=== PATIENT | female | born 1985 | race Caucasian/White ===

== ENCOUNTER 2017-06-21 08:57 | Inpatient (IN) | payer OTHER ==
[~2017-06-21] VITALS: Ht 167.6 cm; Wt 50.3 kg
[2017-06-21 00:30] VITALS: BP 119/80
[2017-06-21] MEDS ORDERED: CLON1TAB4 PO (21:55)
[2017-06-21] MEDS ORDERED: BUPR1FIL SL (21:55)
[2017-06-21] MEDS ORDERED: CARB200T PO (21:55)
[2017-06-21] MEDS ORDERED: SERT100T PO (21:55)
[2017-06-21 22:00] VITALS: BP 119/80
--- NOTE | 2017-06-21 22:00 | NUR ---
Intake Assessment Assessment done at intake office. Patient is alert & oriented to name, place & situation. Pt is not sure of the date. Pt is ambulatory with a steady gait. Speech is clear and audible. Pt is cooperative during interview. Pt appears moderately anxious and noted with mild agitation. Vitals noted B/P 119/80, TX 73, RR 16, Temp 97.8, O2Sat 98%. Pt is here for Opiate and Benzo dependence. No seizure history noted. Pt reported allergies to Penicillins. Pt brought home medications. Explained to patient policy regarding destruction of any controlled substance/prescription brought to facility and handling of all medications. Pt verbalized understanding.
[2017-06-21] MEDS ORDERED: DICYCLOMINE HCL 20 MG TABLET PO PRN (22:15)
[2017-06-21] MEDS ORDERED: ACETAMINOPHEN 325 MG TABLET PO PRN (22:15)
[2017-06-21] MEDS ORDERED: CLONIDINE HCL 0.1 MG TABLET PO PRN (22:15)
[2017-06-21] MEDS ORDERED: LORAZEPAM 1 MG TABLET PO PRN (22:15)
[2017-06-21] MEDS ORDERED: LORAZEPAM 2 MG/1 ML VIAL IM PRN (22:15)
[2017-06-21] MEDS ORDERED: LOPERAMIDE HCL 2 MG CAPSULE PO PRN ×2 (22:15)
[2017-06-21] MEDS ORDERED: MIRALAX 17 GM POWD.PACK PO PRN (22:15)
[2017-06-21] MEDS ORDERED: ONDANSETRON 4 MG/2 ML VIAL IM PRN (22:15)
[2017-06-21 22:36] LABS: *URINE HCG, QUAL NEGATIVE (NEGATIVE)
[2017-06-21 22:59] LABS: *AMPHETAMINE, URINE NEGATIVE (NEGATIVE); *BARBITURATE, URINE NEGATIVE (NEGATIVE); *CANNABINOID, URINE NEGATIVE (NEGATIVE); *COCCAINE, URINE NEGATIVE (NEGATIVE); *OPIATE, URINE NEGATIVE (NEGATIVE); *PHENCYCLIDINE SCREEN,URINE NEGATIVE (NEGATIVE)
[2017-06-21] MEDS ORDERED: LORAZEPAM 1 MG TABLET PO ONE (23:00)
--- NOTE | 2017-06-21 23:00 | NUR ---
ADMISSION NOTE: Patient is a 31 y.o female admitted at [facility] at approximately 2221 pm of 06/21/17 for medically supervised withdrawal from Xanax & Klonopin. Body search done and skin check done, no contraband found. Skin noted to be intact. Pt is 5'6" tall and weighs 111 lbs in a standing scale. Pt is cooperative during assessment. Patient is oriented to floor unit and room. Patient follows a regular diet at home with allergies to Penicillin. Pt wishes to be full Code. Patient is alert & oriented to name, place and situation. Patient does not remember the date. Patient is ambulatory with a steady gait. Speech is clear and audible. Patient appears moderately anxious with mild agitation noted. Patient is cooperative and answers questions appropriately during interview. No shortness of breath noted. Respiration even & unlabored. Abdomen soft & non-distended. Bowel sounds active in all four quadrants. No nausea/vomiting noted. Patient denies pain or discomfort. No headache noted. Bilateral hand tremors noted. Patient denies any hallucinations. CIWA on admission is 9. 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 Pt denies any suicide attempts in the past. Pt currently denies SI/HI. Pt was able to provide urine sample for drug screen upon admission and is voiding clear yellow urine with no problems. Substance use: 1. Klonopin- Pt started taking prescribed Klonopin 1 year and a half ago. Patient reported taking 5-6 mg daily for the past 2 months. Pt last took was 6mg of Klonopin today 06/21/17. 2. Xanax- Pt started taking prescribed Klonopin last month on 05/28/17. Pt reports taking 4-6 bars daily. Pt last took was 10mg on the day of admission 06/21/17 Suboxone- Pt started taking prescribed Suboxone for Opiate maintenance 3 years ago. Pt reports taking 6mg daily for the past 1 year and a half. Pt last took was 5mg on the day of admission 06/21/17. Treatment History: Pt could not recall the name of the treatment facilities she has been to. She remember that she has been to a treatment facility in [place]. Patient denies being hospitalized in the last 30 days. Pt has never been sober from benzodiazepines. Pt decided to come to treatment today because "I want to get off Benzodiazepines". Patient reports symptoms when he does not use as tremors, anxiety, agitation, & sweating. Patient occasionally smokes cigarrettes but uses a vaporizer. Patient refused flu & pneumonia vaccines, educated patient risk & benefits but still refused. Urine drug screen came back positive for Benzodiazepines. Fall & Seizure precautions are in place. All needs attended & met. Safety precautions are in place. Bed locked in lowest position. Both side rails up. Call light within pt's reach. Dr. Gonzales seen pt at intake office. Admission orders received. Pt educated regarding use of the call light and all questions answered. Fall precautions ordered. Bed is down with call light in reach.
[2017-06-21] MEDS ORDERED: [UNRECOGNIZED DRUG - OTHER] (23:05)
[2017-06-21] MEDS ORDERED: Omega 3 (23:05)
[2017-06-21] MEDS ORDERED: OMEG1CAP40 PO (23:05)
[2017-06-21] MEDS ORDERED: Milk Thistle (23:05)
[2017-06-21 23:46] LABS: BASOPHILS % (AUTO) 0.5 % (0.0-2.0); EOSINOPHILS # (AUTO) 0.1 K/uL (0.0-0.7); EOSINOPHILS % (AUTO) 1.6 % (0.0-7.0); HEMATOCRIT 38.2 % (37-47); HEMOGLOBIN 12.8 G/DL (12.0-16.0); LYMPHOCYTES # (AUTO) 4.4 K/UL (0.8-4.8); MEAN CORPUSCULAR HEMOGLOBIN 29.5 UUG (27.0-31.0); MEAN CORPUSCULAR HGB CONC 34 g/dL (32.0-37.0); MEAN CORPUSCULAR VOLUME 88.1 FL (81.0-99.0); MONOCYTES # (AUTO) 0.7 K/UL (0.1-1.30); NEUTROPHILS # (AUTO) 4.1 K/UL (1.8-8.9); NEUTROPHILS % (AUTO) 43.9 % (38.5-71.5); PLATELET COUNT (AUTO) 239 K/UL (150-450); RED BLOOD CELL COUNT(AUTO) 4.33 MIL/UL (4.2-5.4); WHITE BLOOD COUNT (AUTO) 9.3 K/UL (4.0-11.2)
[2017-06-21 23:59] LABS: ALANINE AMINOTRANSFERASE 22 U/L (14-59); ALKALINE PHOSPHATASE 58 U/L (50-136); ASPARTATE AMINOTRANSFERASE 24 U/L (15-37); BILIRUBIN,TOTAL 0.2 mg/dL (0.2-1.0); CARBON DIOXIDE 32 mmol/L (21-32); CHLORIDE 104 mmol/L (98-107); CREATININE 0.7 mg/dL (0.6-1.3); GLUCOSE 83 mg/dL (74-106); MAGNESIUM 1.9 mg/dL (1.8-2.4); POTASSIUM 4.5 mmol/L (3.5-5.1); TOTAL PROTEIN, SERUM 8.4 g/dL (6.4-8.2); UREA NITROGEN, BLOOD 10 mg/dL (7-18)
[2017-06-22 00:05] LABS: ETHANOL < 3 MG/DL (0-0)
[2017-06-22 00:07] LABS: THYROID STIMULATING HORMONE 4.219 mIU/mL (0.358-3.740)
[2017-06-22] MEDS ORDERED: LORAZEPAM 1 MG TABLET ONE (00:10)
[2017-06-22] MEDS ORDERED: CARBAMAZEPINE 200 MG TABLET PO ONE (00:15)
[2017-06-22 00:30] VITALS: BP 101/59
[2017-06-22] MEDS ORDERED: ONDANSETRON ODT 4 MG TAB.RAPDIS ONE (00:49)
[2017-06-22] MEDS ORDERED: [UNRECOGNIZED DRUG - CODE] PO (02:54)
[2017-06-22] MEDS ORDERED: Niacin PO (03:11)
[2017-06-22] MEDS ORDERED: L-Theanine PO (03:11)
[2017-06-22] MEDS ORDERED: [UNRECOGNIZED DRUG - OTHER] PO (03:11)
[2017-06-22] MEDS ORDERED: VITA400C71 PO (03:11)
[2017-06-22] MEDS ORDERED: CoQ10 PO (03:11)
[2017-06-22] MEDS ORDERED: B COMPLEX PO (03:11)
[2017-06-22] MEDS ORDERED: NIACIN PO (03:11)
[2017-06-22] MEDS ORDERED: [UNRECOGNIZED DRUG - MIXTURE] PO (03:11)
[2017-06-22] MEDS ORDERED: Adrenal Support PO (03:11)
[2017-06-22] MEDS ORDERED: Resveratrol PO (03:11)
[2017-06-22] MEDS ORDERED: [UNRECOGNIZED DRUG - OTHER] PO (03:11)
[2017-06-22] MEDS ORDERED: [UNRECOGNIZED DRUG - OTHER] PO (03:11)
[2017-06-22] MEDS ORDERED: KYOLIC PO (03:11)
[2017-06-22] MEDS ORDERED: DULCOEASE PO (03:11)
[2017-06-22] MEDS ORDERED: BISA-79 PO (03:11)
[2017-06-22] MEDS ORDERED: [UNRECOGNIZED DRUG - OTHER] PO (03:11)
[2017-06-22] MEDS ORDERED: UBIQ100C3 PO (03:11)
[2017-06-22] MEDS ORDERED: PLANT STEROLS PO (03:11)
[2017-06-22] MEDS ORDERED: [UNRECOGNIZED DRUG - OTHER] PO (03:11)
[2017-06-22 04:00] VITALS: BP 95/45
--- NOTE | 2017-06-22 07:15 | NUR ---
Start of Shift Report from the night nurse: pt is a 31 y/o female here for Benzo dependence r/t Klonopin 5-6mg and Xanax 4-6 bars daily and Opiates r/t Suboxone 6mg daily; 8 day Ativan and Subutex tapers ordered to start today during my shift. Pt is a full code, Regular diet, Allergic to PCN, fall and seizure precautions. HHx: Anxiety, Traci d/o, depression, anorexia, Brain Cyst and Etoh, no hx of sz. V/s stable. Skin is intact. PRN Ativan given last night. Last CIWA 6. Pt is asleep in room. Will cont. to monitor the pt.
--- NOTE | 2017-06-22 07:26 | NUR ---
End of Shift Note: Patient is a 31 y/o female admitted last night for Benzo dependence. 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 No seizure history noted. Patient is on a regular diet with allergies to Penicillin. Full Code status. Fall and Seizure precaution noted. Patient is to be started today on a 8-day Ativan taper. Pt will be on Buprenorphine 2mg SL TID for Opiate maintenance. Patient received a one time dose of Ativan 2mg during my shift and was effective in decreasing CIWA scores from 9 to 6. Patient remained stable and vitals WNL. Patient was able to sleep for a total of 4 hours. Pt consumed 855 ml of fluids. Voided 2x with no bowel movement. Encourage pt to increase fluid intake. All needs attended & met. Safety measures in place. Will endorse pt to day shift nurse.
[2017-06-22] MEDS ORDERED: TUBERCULIN,PURIF.PROT.DERIV. 5 TU/0.1 ML TEST ID ONE (09:00)
[2017-06-22] MEDS ORDERED: CARBAMAZEPINE XR 100 MG TAB.SR.12H PO SCH (09:00)
[2017-06-22 09:59] VITALS: BP 116/70
[2017-06-22] MEDS: LORAZEPAM 1 MG TABLET PO SCH ×4 (10:09→21:10)
[2017-06-22] MEDS: MULTIVITAMINS,THERAPEUTIC TABLET PO SCH (10:10)
[2017-06-22] MEDS: BUPRENORPHINE HCL 2 MG TAB.SUBL SL SCH ×3 (10:10→21:11)
[2017-06-22] MEDS: BACLOFEN 20 MG TABLET PO PRN ×2 (10:12→21:10)
--- NOTE | 2017-06-22 10:15 | NUR ---
PRN Medication Administration Pt is in room very anxious and agitated with muscle tension; PRN Clonidine 0.1mg and PRN Baclofen given as ordered. Will reassess in 1H.
[2017-06-22] MEDS: SERTRALINE HCL 100 MG TABLET PO SCH (12:21)
[2017-06-22] MEDS: CARBAMAZEPINE 200 MG TABLET PO SCH ×2 (12:21→21:10)
[2017-06-22 14:00] VITALS: BP 87/45
[2017-06-22 16:00] VITALS: BP 98/62
--- NOTE | 2017-06-22 17:53 | NUR ---
Medication [id number] Pt has been asleep in her room since approx 1430pm so HELD the Subutex 2mg due at 1500pm; Dr. Gonzales notified.
--- NOTE | 2017-06-22 19:30 | NUR ---
Start of Shift Note: Patient is a 31 y/o female admitted on 06/21/17 for Xanax and Klonopin dependence. Patient reported taking Klonopin 5-6mg daily for 2 months & Xanax 4-6 bars daily since 05/28/17. 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 No seizure history noted. Patient is on a regular diet with allergies to Penicillin. Full Code status. Fall and Seizure precaution noted. Patient is on a 8-day Ativan taper and tolerating well. Pt is also on Buprenorphine 2mg SL TID for Opiate maintenance. Patient received PRN Baclofen and Clonidine during day shift and were effective. Patient is alert & oriented x4. No shortness of breath noted. Respiration even & unlabored. Abdomen soft & non-distended. No nausea/vomiting noted. Patient complains of 4/10 generalized body aches, moderate anxiety and mild agitation. Hand tremors felt but not seen. Pt denies any hallucinations. Safety measures in place. Bed locked in lowest position. Both side rails up. Call light within pt's reach. Will continue to monitor patient.
--- NOTE | 2017-06-22 19:40 | NUR ---
End of Shift Report to the night nurse: pt is a 31 y/o female here for Benzo dependence r/t Klonopin 5-6mg and Xanax 4-6 bars daily and Opiates r/t Suboxone 6mg daily; 8 day Ativan and Subutex tapers started and the pt missed her 1500 dose of Subutex during my shift since she was very sleepy and BP 87/[address] Gonzales notified. Pt is a full code, Regular diet, Allergic to PCN, fall and seizure precautions. HHx: Anxiety, Panic d/o, depression, anorexia, Brain Cyst and Etoh, no hx of sz. V/s stable. Skin is intact. PRN Clonidine 0.1 mg and Baclofen 10mg given for her anxiety this morning. Last CIWA 6.
[2017-06-22 20:00] VITALS: BP 118/80
[2017-06-22] MEDS: CLONIDINE HCL 0.1 MG TABLET PO PRN (21:11)
--- NOTE | 2017-06-22 21:11 | NUR ---
PRN Clonidine and Baclofen Patient presented with complains of 4/10 generalized body aches & anxiety. PRN Baclofen and Clonidine administered as ordered. Will monitor for effectiveness of medication.
--- NOTE | 2017-06-22 22:11 | NUR ---
PRN Reassessment PRN medication effective. Patient verbalized relief from body aches and in anxiety noted. Patient appears calm at this time. Patient shows no s/s of distress. Safety measures in place. Will continue to monitor patient.
[2017-06-23] VITALS: BP 119/79
[2017-06-23] MEDS: LORAZEPAM 1 MG TABLET PO PRN ×2 (01:23→22:39)
--- NOTE | 2017-06-23 01:23 | NUR ---
PRN Ativan Patient noted with anxiety, sligth agitation and restlessness. Patient complains of nausea with no episode of vomiting. CIWA 5 noted at this time. PRN Ativan administered as ordered. Will monitor for effectiveness of medication.
--- NOTE | 2017-06-23 02:23 | NUR ---
PRN Reassessment Patient asleep in bed and appears comfortable. No s/s of distress noted. Respiration even & unlabored. Safety measures in place. Will continue to monitor patient.
[2017-06-23 04:00] VITALS: BP 98/52
--- NOTE | 2017-06-23 07:13 | NUR ---
End of Shift Note: Patient is a 31 y/o female admitted on 06/21/17 for Benzo dependence. 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 No seizure history noted. Patient is on a regular diet with allergies to Penicillin. Full Code status. Fall and Seizure precaution noted. Patient is on a 8-day Ativan taper and tolerating well. Pt is on Buprenorphine 2mg SL TID for Opiate maintenance. Patient received PRN Clonidine, Baclofen and Ativan 1mg during my shift and were effective. Patient remained stable and vitals WNL. Patient was able to sleep for a total of 4 hours. Pt consumed 296 ml of fluids. Voided 1x with no bowel movement. Encourage pt to increase fluid intake. All needs attended & met. Safety measures in place. Will endorse pt to day shift nurse.
--- NOTE | 2017-06-23 07:35 | NUR ---
START OF SHIFT Pt is a 31 yr old female, A&Ox4. Pt was admitted on 06/21/17 for Benzo dependence and is on 8 day Ativan taper as ordered. Medication adams well. Received report from shift stacker nurse. Pt received Ativan PRN, Clonidine PRN, and Baclofen PRN during the night. medication was effective. Pt slept for 4 hrs. Last CIWA score was 5 at 0000. Pt is currently in bed resting with respirations even and unlabored. No acute distress noted. Skin is intact, warm and dry to touch. Safety precautions observed. Call light is within reach. Will continue to monitor.
[2017-06-23 08:00] VITALS: BP 116/56
[2017-06-23] MEDS: UBIQUINOL 100 MG PO SCH (09:30)
[2017-06-23] MEDS: CARBAMAZEPINE 200 MG TABLET PO SCH ×2 (09:31→20:23)
[2017-06-23] MEDS: VITAMIN E PO SCH (09:31)
[2017-06-23] MEDS: OMEGA PO SCH (09:31)
[2017-06-23] MEDS: LORAZEPAM 1 MG TABLET PO SCH ×3 (09:32→20:23)
[2017-06-23] MEDS: MULTIVITAMINS,THERAPEUTIC TABLET PO SCH (09:32)
[2017-06-23] MEDS: SERTRALINE HCL 100 MG TABLET PO SCH (09:32)
[2017-06-23] MEDS: BUPRENORPHINE HCL 2 MG TAB.SUBL SL SCH ×3 (09:32→20:22)
[2017-06-23 10:08] LABS: HEPATITIS B SURFACE AG Negative (Negative)
[2017-06-23] MEDS ORDERED: LORAZEPAM 1 MG TABLET PO ONE (10:45)
--- NOTE | 2017-06-23 11:10 | NUR ---
ATIVAN X1 GIVEN Pt was seen and examined by Dr. Gonzales. Pt is c/o increase anxiety. Received new order for Ativan 1mg PO once at this time. CIWA score is 4. Ativan 1mg PO was administered as ordered. Medication adams well. Pt was encouraged to attend group. Pt agreed to attend group therapy. Will continue to monitor.
[2017-06-23 12:00] VITALS: BP 115/80
--- NOTE | 2017-06-23 12:10 | NUR ---
ATIVAN RE-ASSESSMENT Ativan 1mg PO x1 was effective. Pt continues to c/o anxiety but is able to cope with anxiety level. Will continue to monitor.
--- NOTE | 2017-06-23 12:34 | NUR ---
Therapist prompted client to come to group today. Client agreed to attend.
[2017-06-23] MEDS: VITAMIN D3 2000 UNITS PO SCH (12:59)
[2017-06-23] MEDS: BACLOFEN 20 MG TABLET PO PRN ×2 (13:08→20:23)
[2017-06-23] MEDS: CLONIDINE HCL 0.1 MG TABLET PO PRN ×2 (13:08→20:23)
--- NOTE | 2017-06-23 13:08 | NUR ---
PRN GIVEN Pt c/o increase anxiety and muscle aching 02/17. Baclofen 20mg PO PRN and Clonidine 0.1mg PO PRN was given as ordered. Medication adams well. Encouraged increase fluid intake. Will continue to monitor.
[2017-06-23] MEDS ORDERED: BISACODYL 5 MG TABLET.DR PO PRN (13:15)
--- NOTE | 2017-06-23 14:08 | NUR ---
PRN RE-ASSESSMENT Clonidine PRN and Baclofen PRN was effective. Pt continues to c/o anxiety but is able to cope with anxiety level. Pt denies any pain or discomfort at this time. Encouraged increase fluid intake. Will continue to monitor.
[2017-06-23 16:00] VITALS: BP 106/72
--- NOTE | 2017-06-23 17:39 | NUR ---
NSG NOTES Pt was offered meals of her choice but pt refused to eat. Pt was also offered Boost as ordered from registered dietitian but pt continued to refuse. pt stated, "I'm not going to drink that" Pt was educate on nutrition. Pt was able to verbalize understanding. Will continue to monitor.
--- NOTE | 2017-06-23 19:07 | NUR ---
END OF SHIFT Pt is a 31 yr old female, A&Ox4. Pt was admitted on 06/21/17 for Benzo dependence and is on 8 day Ativan taper as ordered. Medication adams well. Pt has been cooperative with medication regimen and plan of care. Pt attended group sessions that was offered during the day. Last CIWA score was 3 at 1600. Pt received Clonidine PRN and Baclofen PRN at 1308 for anxiety and muscle aching. Medication was effective. Pt states of feeling anxious, cold chill and sweat throughout the day. Pt received Ativan 1mg x1 at 1045. Medication was effective. Skin is intact, warm and dry to touch. No tremors seen or felt. Pt denies any n/v at this time. Encouraged increase fluid intake for hydration. Safety precautions observed. Call light is within reach.
--- NOTE | 2017-06-23 19:15 | NUR ---
Start of Shift Note: Patient is a 31 y/o female admitted on 06/21/17 for Xanax and Klonopin dependence. Patient reported taking Klonopin 5-6mg daily for 2 months & Xanax 4-6 bars daily since 05/28/17. 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 No seizure history noted. Patient is on a regular diet with allergies to Penicillin. Full Code status. Fall and Seizure precaution noted. Patient is on a 8-day Ativan taper and tolerating well. Pt is also on Buprenorphine 2mg SL TID for Opiate maintenance. Patient received PRN Baclofen, Clonidine and a one time dose of Ativan 1mg during day shift and were effective. Patient is alert & oriented x4. No shortness of breath noted. Respiration even & unlabored. Abdomen soft & non-distended. No nausea/vomiting noted. Patient complains of 5/10 generalized body aches, anxiety slight agitation. Hand tremors felt but not seen. Pt denies any hallucinations. Safety measures in place. Bed locked in lowest position. Both side rails up. Call light within pt's reach. Will continue to monitor patient.
[2017-06-23 20:00] VITALS: BP 106/73
--- NOTE | 2017-06-23 20:23 | NUR ---
PRN Clonidine and Baclofen Patient presented with complains of 5/10 generalized body aches & anxiety. PRN Baclofen and Clonidine administered as ordered. Will monitor for effectiveness of medication.
--- NOTE | 2017-06-23 21:23 | NUR ---
PRN Reassessment Patient verbalized relief from body aches and in anxiety noted. PRN medication effective. Patient appears calm at this time. Patient shows no s/s of distress. Safety measures in place. Will continue to monitor patient.
[2017-06-23] MEDS: diphenhydrAMINE 50 MG CAPSULE PO PRN (22:39)
--- NOTE | 2017-06-23 22:39 | NUR ---
PRN Administration Patient is unable to sleep d/t complaints of nausea, & anxiety. Patient also complains of constipation. PRN Ativan 1mg, Benadryl & Dulcolax administered as ordered. Will continue to monitor for effectiveness of medication.
--- NOTE | 2017-06-23 23:39 | NUR ---
PRN Reassessment Patient still awake at this time. Patient appears calm. PRN medication effective. Pt reports decrease in anxiety. No bowel movement noted at this time. Safety measures in place. Will continue to monitor patient.
[2017-06-24] VITALS: BP 116/77
[2017-06-24 04:00] VITALS: BP 97/58
--- NOTE | 2017-06-24 07:08 | NUR ---
End of Shift Note: Patient had an uneventful night. Pt continues on her Ativan taper and tolerating well. Pt is on Buprenorphine 2mg SL TID for Opiate maintenance. Patient received PRN Clonidine, Baclofe, Miralax, Dulcolax, Benadryl and Ativan 1mg during my shift. Patient still noted with no bowel movement. Patient remained stable and vitals WNL. Patient was able to sleep for a total of 4 hours. Pt consumed 250 ml of fluids. Voided 1x with no bowel movement. Encourage pt to increase fluid intake. All needs attended & met. Safety measures in place. Will endorse pt to day shift nurse.
--- NOTE | 2017-06-24 07:30 | NUR ---
START OF SHIFT Pt is a 31 yr old female, A&Ox4. Pt was admitted on 06/21/17 for Benzo dependence and is on 8 day Ativan taper as ordered. Medication adams well. Received report from machinist 2nd shift nurse. Pt received Ativan PRN, Clonidine PRN, Dulcolax PRN, Miralax PRN and Baclofen PRN during the night. Pt slept for 4 hrs. Last CIWA score was 5 at 2230. Pt is currently in bed resting with respirations even and unlabored. No acute distress noted. Skin is intact, warm and dry to touch. Safety precautions observed. Call light is within reach. Will continue to monitor.
[2017-06-24 08:00] VITALS: BP 106/62
[2017-06-24] MEDS: LORAZEPAM 1 MG TABLET PO SCH ×3 (08:56→20:08)
[2017-06-24] MEDS: CARBAMAZEPINE 200 MG TABLET PO SCH ×2 (08:56→20:08)
[2017-06-24] MEDS: SERTRALINE HCL 100 MG TABLET PO SCH (08:57)
[2017-06-24] MEDS: BACLOFEN 20 MG TABLET PO PRN ×3 (08:57→21:18)
--- NOTE | 2017-06-24 08:57 | NUR ---
PRN GIVEN Pt c/o muscle aching 5/10. Baclofen 20mg PO PRN was given. Medication adams well. Will continue to monitor.
[2017-06-24] MEDS: BUPRENORPHINE HCL 2 MG TAB.SUBL SL SCH ×3 (08:58→20:08)
[2017-06-24] MEDS: VITAMIN D3 2000 UNITS PO SCH (09:00)
[2017-06-24] MEDS: VITAMIN E PO SCH (09:00)
[2017-06-24] MEDS: UBIQUINOL 100 MG PO SCH (09:00)
[2017-06-24] MEDS: OMEGA PO SCH (09:00)
[2017-06-24] MEDS: MULTIVITAMINS,THERAPEUTIC TABLET PO SCH (09:00)
--- NOTE | 2017-06-24 09:00 | NUR ---
REFUSED MEDICATION Pt refused to take Multivitamin, Fish oil, Ubiquinol, Vit D, and Vit E as scheduled at 0900. Pt was educated on medication regimen. Pt needs further education on medication regimen. Will continue to monitor.
--- NOTE | 2017-06-24 10:00 | NUR ---
PRN RE-ASSESSMENT Baclofen PRN was effective. Pt denies any pain or discomfort. Will continue to monitor.
[2017-06-24 12:00] VITALS: BP 128/93
[2017-06-24] MEDS: CLONIDINE HCL 0.1 MG TABLET PO PRN ×2 (12:24→21:18)
--- NOTE | 2017-06-24 12:24 | NUR ---
PRN GIVEN Pt c/o increase anxiety. Clonidine 0.1mg PO PRN was given as ordered. Medication adams well. Will continue to monitor.
[2017-06-24] MEDS ORDERED: PATIENT MAY USE OWN MED- MD OK PO PRN ×2 (13:15)
--- NOTE | 2017-06-24 13:24 | NUR ---
PRN RE-ASSESSMENT Clonidine PRN was mildly effective for anxiety. Pt was encouraged to attend group therapy to stage electrician helper with anxiety. Will continue to monitor.
[2017-06-24] MEDS: IBUPROFEN 400 MG TABLET PO PRN (15:33)
--- NOTE | 2017-06-24 15:33 | NUR ---
PRN GIVEN Pt c/o generalized body aches 02/17. Motrin 400mg PO PRN and Baclofen 20mg PO PRN was given as ordered. Encouraged increase fluid intake. Will continue to monitor.
[2017-06-24] MEDS ORDERED: DULCOEASE PO PRN (15:54)
[2017-06-24] MEDS ORDERED: DULCOLAX 5 MG PO PRN ×2 (15:58→16:15)
[2017-06-24 16:00] VITALS: BP 123/72
--- NOTE | 2017-06-24 17:01 | NUR ---
PRN Dulcolax 5mg PO, DulcoEase 100mg PO administered for Constipation, encourage client to increase PO fluid as tolerated. Call light within reach. Primary nurse to reassess.
--- NOTE | 2017-06-24 18:55 | NUR ---
START OF SHIFT NOTE: Patient is a 31 year old female admitted to [facility] on 06/21/2017 for Benzodiazepines dependency. Patient continue ordered 8 day Ativan and Subutex maintenance Taper. Patient tolerated well without ASE. Patient remains compliant with treatment plan, medications, and diet regime. Patient reports Allergy to Penicillin , is on Regular Diet, is on Full Code, is on Fall and Seizures precautions. Patient denies History of Seizures. 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 Patient denies past surgical history. Upon endorsement, patient is in her room alert and oriented x4 with stable gait, speech is soft and clear. COWS 6, CIWA 5. Patient presented anxious agitated, nervousness, stomach cramps, restlessness, and mild headache. VSWNL. Respirations is even and unlabored. Patient denies SOB and chest pain. Lung Sounds clear bilaterally. Abdomen is soft, non-tender. Skin is intact, warm and dry to touch. Encouraged fluids intake as tolerated. Encouraged to attend groups activities. All needs met. Safety measures on place: Call light within reach, bed is locked, and lowest position, padded rails up bilaterally. Patient endorsed by outgoing day shift nurse. Report received. Will continue to monitor closely. Addendum: 06/24/17 at 2209 by NATALYA POTTS RN CIWA 5.
--- NOTE | 2017-06-24 18:55 | NUR ---
END OF SHIFT Pt is a 31 yr old female, A&Ox4. Pt was admitted on 06/21/17 for Benzo dependence and is on 8 day Ativan taper as ordered and on Subutex maintenance Medication adams well. Pt has been cooperative with medication regimen and plan of care. Pt attended group sessions that was offered during the day. Last CIWA score was 8 at 1600. Pt received Clonidine PRN, Baclofen PRN x2 and Motrin PRN for s/s of w/d. Medication was effective. Pt is c/o constipation and states she has not had a BM in 5 days. Dulcolax 5mg and Dulcoease PRN was given as ordered. Pt denies any BM during the day. Endorsed to manufacturing supervisor 2nd shift nurse to continue to monitor. Skin is intact, warm and dry to touch. No tremors seen or felt. Pt denies any n/v at this time. Encouraged increase fluid intake for hydration. Safety precautions observed. Call light is within reach.
[2017-06-24 20:00] VITALS: BP 138/78
[2017-06-24] MEDS: MAG HYDROX/AL HYDROX/SIMETH 30 ML LIQUID UDC PO PRN (21:18)
[2017-06-24] MEDS: diphenhydrAMINE 50 MG CAPSULE PO PRN (21:18)
[2017-06-24] MEDS: BISACODYL 5 MG TABLET.DR PO PRN (21:18)
--- NOTE | 2017-06-24 21:18 | NUR ---
PRN BENADRYL 50 MG 1 CAP PO, PRN CLONIDINE 0.1 MG 1 TAB PO, PRN DULCOLAX 5 MG 1 TAB PO, PRN MAALOX SUSPENSION 30 ML PO ADMINISTRATION Patient c/o insomnia, increased anxiety, heartburn, and constipation. PRN Benadryl 50 mg 1 capsule PO for insomnia, PRN Clonidine 0.1 mg 1 tab PO for anxiety, PRN Maalox Suspension for heartburn, PRN Dulcolax 5 mg 1 tab PO for constipation administrated with full glass of water as ordered. Patient tolerated well. All needs met. Safety measures on place. Call light within reach, bed in lowest position and locked, padded rails up bilaterally rails up bilaterally. Will continue to monitor closely.
--- NOTE | 2017-06-24 21:18 | NUR ---
PRN BACLOFEN 20 MG 1 TAB PO ADMINISTRATION. Patient c/o muscle spasm. PRN Baclofen 20 mg 1 Tab PO administrated with full glass of water as ordered. Patient tolerated well. All needs met. Safety measures on place. Call light within reach, bed in lowest position and locked, padded rails up bilaterally rails up bilaterally. Will continue to monitor closely.
--- NOTE | 2017-06-24 22:18 | NUR ---
RE-ASSESSMENT Patient is sleeping. Respirations even and unlabored. RR:15. PRN Baclofen 20 mg 1 tab PO was effective. All needs met. Safety measures on place. Call light within reach, bed in lowest position and locked, padded rails up bilaterally rails up bilaterally. Will continue to monitor closely.
--- NOTE | 2017-06-24 22:18 | NUR ---
RE-ASSESSMENT Patient is sleeping. Respirations even and unlabored. RR 15. PRN Benadryl 50 mg 1 capsule PO for insomnia, PRN Clonidine 0.1 mg 1 tab PO for anxiety, PRN Maalox Suspension for heartburn, PRN Dulcolax 5 mg 1 tab PO for constipation was effective. All needs met. Safety measures on place. Call light within reach, bed in lowest position and locked, padded rails up bilaterally rails up bilaterally. Will continue to monitor closely.
[2017-06-25] VITALS: BP 111/72
--- NOTE | 2017-06-25 04:00 | NUR ---
VS REFUSED AND COWS/CIWA DEFERRED Patient refused to be woken up for 0400 VS. COWS/CIWA deferred d/t patient sleeping to assess while patient is awake. Safety measures on place by hospital policy: Call light within reach; Bed in lowest position and locked; side rails up x2. Will continue to monitor.
--- NOTE | 2017-06-25 07:08 | NUR ---
END OF SHIFT NOTE: Patient is a 31 year old female admitted to [facility] on 06/21/2017 for Benzodiazepines dependency. Patient continue ordered 8 day Ativan and Subutex maintenance Taper. Patient tolerated well without ASE. Patient remains compliant with treatment plan, medications, and diet regime. Patient reports Allergy to Penicillin, Regular Diet, is on Full Code, is on Fall and Seizures precautions. Patient denies History of Seizures. 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 Patient refused to be woken up for 0400 VS. COWS/CIWA deferred d/t patient sleeping to assess while patient is awake Last CIWA 3 @0000. CIWA taken when patient's alert during the night. Last VS @0000: T: 98.1; BP: 111/72; HR:68; RR:17; RA O2 SAT: 95%. Pain level: "0/10". Patient denies SI/HI. Respirations unlabored and even. Abdomen is soft and non-tender. Skin is intact, warm and dry to touch. PRN Benadryl 50 mg 1 cap PO for insomnia, PRN Baclofen 20 mg 1 tab PO for muscle spasm, PRN Clonidine 0.1 mg 1 tab PO for anxiety, PRN Maalox Suspension for heartburn, PRN Dulcolax 5 mg 1 tab PO for constipation administrated @2118 were effective. Patient slept 4 hours 15 minutes, intake 1,800 ml, voided x3. Encouraged fluids as tolerated. Encouraged fluids as tolerated. Encouraged to attend groups activities. All needs met. Safety measures on place. Call light within reach, bed in lowest position and locked, padded rails up bilaterally. Patient endorsed to day shift nurse.
--- NOTE | 2017-06-25 07:46 | NUR ---
START OF SHIFT Received report from night nurse. 31 year old female patient admitted on 06/21/17 for benzo and opiate dependence. Pt has been placed on a 8 day Ativan taper and at this time continues on a Subutex maintenance dose per report. Pt is A/O x4, RR even and unlabored, V/S stable and WNL. Pt reports hx of anxiety, depression, anorexia. Pt ambulates with a steady gait. Pt education provided on medication administration. Per report, patient has adequate caloric and fluid intake. No acute distress noted, pt s/s of discomfort have been managed with ordered medication. Most recent CIWA is 3. PRN Benadryl, Baclofen and Clonidine administered. Pt slept for 4 hours. All needs met at this time, safety measures in place, will continue to monitor.
[2017-06-25 08:41] VITALS: BP 111/72
[2017-06-25] MEDS: MULTIVITAMINS,THERAPEUTIC TABLET PO SCH (08:47)
[2017-06-25] MEDS: LORAZEPAM 1 MG TABLET PO SCH ×4 (08:47→21:17)
[2017-06-25] MEDS: BUPRENORPHINE HCL 2 MG TAB.SUBL SL SCH ×2 (08:48→21:17)
[2017-06-25] MEDS: SERTRALINE HCL 100 MG TABLET PO SCH (08:48)
[2017-06-25] MEDS: VITAMIN E PO SCH (08:51)
[2017-06-25] MEDS: CARBAMAZEPINE 200 MG TABLET PO SCH ×2 (08:52→21:17)
[2017-06-25] MEDS: VITAMIN D3 2000 UNITS PO SCH ×2 (08:52→08:58)
[2017-06-25] MEDS: OMEGA PO SCH (08:58)
[2017-06-25] MEDS: UBIQUINOL 100 MG PO SCH (08:58)
[2017-06-25 09:04] VITALS: BP 97/60
[2017-06-25] MEDS: IBUPROFEN 400 MG TABLET PO PRN (09:09)
[2017-06-25] MEDS: BACLOFEN 20 MG TABLET PO PRN ×2 (09:09→17:15)
--- NOTE | 2017-06-25 09:09 | NUR ---
PRN BACLOFEN/PRN MOTRIN Pt complains of 6/10 muscle aches and menstrual cramps. PRN Baclofen 20 mg PO and Motrin 400 mg PO administered, will reassess.
--- NOTE | 2017-06-25 10:09 | NUR ---
REASSESSMENT Patient denies pain at this time. Pt is seen socializing with peers and attends activities. Will continue to monitor.
[2017-06-25] MEDS: CLONIDINE HCL 0.1 MG TABLET PO PRN (12:55)
--- NOTE | 2017-06-25 12:55 | NUR ---
PRN CLONIDINE Pt c/o of hot and cold chills and anxiety, PRN Clonidine 0.1 mg administered as ordered, will reassess.
[2017-06-25 12:59] VITALS: BP 129/78
--- NOTE | 2017-06-25 13:55 | NUR ---
REASSESSMENT Pt reports clonidine was effective and denies discomfort at this time.
[2017-06-25 16:54] VITALS: BP 125/77
--- NOTE | 2017-06-25 17:15 | NUR ---
PRN BACLOFEN Pt c/o 02/17 muscle aches and cramps, PRN Baclofen 20mg administered as ordered, will reassess.
--- NOTE | 2017-06-25 18:15 | NUR ---
REASSESSMENT Patient is sleeping at this time, RR even and unlabored. Unable to reassess if medication was effective.
--- NOTE | 2017-06-25 18:50 | NUR ---
START OF SHIFT NOTE: Patient is a 31 year old female admitted to [facility] on 06/21/2017 for Benzodiazepines dependency. Patient continue ordered 8 day Ativan and Subutex maintenance Taper. Patient tolerated well without ASE. Patient remains compliant with treatment plan, medications, and diet regime. Patient reports Allergy to Penicillin , is on Regular Diet, is on Full Code, is on Fall and Seizures precautions. Patient denies History of Seizures. 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 Patient denies past surgical history. Upon endorsement, patient is in her room alert and oriented x4 with stable gait, speech is soft and clear. CIWA 5. VSWNL. Respirations is even and unlabored. Patient denies SOB and chest pain. Lung Sounds clear bilaterally. Abdomen is soft, non-tender. Skin is intact, warm and dry to touch. Encouraged fluids intake as tolerated. Encouraged to attend groups activities. All needs met. Safety measures on place: Call light within reach, bed is locked, and lowest position, padded rails up bilaterally. Patient endorsed by outgoing day shift nurse. Report received. Will continue to monitor closely.
--- NOTE | 2017-06-25 18:50 | NUR ---
END OF SHIFT Endorsed patient to night nurse. Pt remains stable throughout shift. Reports BMx1. PRN Baclofen x2, Motrin and Clonidine administered and effective. Most recent CIWA at 1700 is 4. New order for Vistaril 25mg for anxiety, if needed. Pt attends groups and activities and socializes with peers. Pt education provided on medication schedule. Pt is sleeping in bed at this time, RR even and unlabored. Safety measures are in place, night nurse to continue monitoring.
[2017-06-25 20:00] VITALS: BP 117/72
[2017-06-26] VITALS (8 sets, daily range): BP systolic 93–125; BP diastolic 45–95
[2017-06-26] MEDS: MAGNESIUM HYDROXIDE 30 ML LIQUID UDC PO PRN (00:09)
[2017-06-26] MEDS: diphenhydrAMINE 50 MG CAPSULE PO PRN ×2 (00:09→23:19)
[2017-06-26] MEDS: CLONIDINE HCL 0.1 MG TABLET PO PRN ×3 (00:10→23:28)
[2017-06-26] MEDS: BISACODYL 5 MG TABLET.DR PO PRN (00:10)
--- NOTE | 2017-06-26 01:10 | NUR ---
RE-ASSESSMENT Patient is sleeping. Respirations even and unlabored. RR 16. PRN Benadryl 50 mg 1 capsule PO for insomnia, PRN Clonidine 0.1 mg 1 tab PO for anxiety, PRN Maalox Suspension for heartburn, PRN Dulcolax 5 mg 1 tab PO for constipation was effective. All needs met. Safety measures on place. Call light within reach, bed in lowest position and locked, padded rails up bilaterally rails up bilaterally. Will continue to monitor closely.
[2017-06-26] MEDS: HYDROXYZINE PAMOATE 25 MG CAPSULE PO PRN ×3 (02:54→19:01)
[2017-06-26] MEDS: BACLOFEN 20 MG TABLET PO PRN ×3 (02:54→19:01)
--- NOTE | 2017-06-26 02:54 | NUR ---
PRN VISTARIL 25 MG 1 CAP PO AND PRN BACLOFEN 20 MG 1 TAB PO ADMINISTRATION Patient c/o anxiety and muscle spasm. CIWA 7. PRN Vistaril 25 mg 1 cap PO for anxiety and PRN Baclofen 20 mg 1 tab for muscle spasm administrated with full glass of water as ordered. Patient tolerated well. All needs met. Safety measures on place. Call light within reach, bed in lowest position and locked, padded rails up bilaterally rails up bilaterally. Will continue to monitor closely.
--- NOTE | 2017-06-26 03:54 | NUR ---
RE-ASSESSMENT Patient is sleeping. Respirations even and unlabored. RR:15. PRN Baclofen 20mg 1 tab PO for muscle spasm and PRN Vistaril 25 mg 1 cap PO for anxiety were effective. All needs met. Safety measures on place. Call light within reach, bed in lowest position and locked, padded rails up bilaterally rails up bilaterally. Will continue to monitor closely
--- NOTE | 2017-06-26 07:10 | NUR ---
END OF SHIFT NOTE: Patient is a 31 year old female admitted to [facility] on 06/21/2017 for Benzodiazepines dependency. Patient continue ordered 8 day Ativan and Subutex maintenance Taper. Patient tolerated well without ASE. Patient remains compliant with treatment plan, medications, and diet regime. Patient reports Allergy to Penicillin, Regular Diet, is on Full Code, is on Fall and Seizures precautions. Patient denies History of Seizures. 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 Patient refused to be woken up for 0400 VS. COWS/CIWA deferred d/t patient sleeping to assess while patient is awake Last CIWA 7 @0000. CIWA taken when patient's alert during the night. COWS/CIWA deferred @0400 d/t patient sleeping to assess while patient is awake. Last VS @0000: T: 97.7; BP: 116/77; HR:77; RR:20; RA O2 SAT: 100%. Pain level: "5/10". Patient denies SI/HI. Respirations unlabored and even. Abdomen is soft and non-tender. Skin is intact, warm and dry to touch. PRN Benadryl 50 mg 1 cap PO for insomnia, PRN Clonidine 0.1 mg 1 tab PO for anxiety, PRN Maalox Suspension for heartburn, PRN Dulcolax 5 mg 1 tab PO for constipation administrated @0010, PRN Vistaril 25 mg 1 cap PO for anxiety, PRN Baclofen 20 mg 1 tab for muscle spasm administrated @0254 were effective. Patient slept 4 hours, intake 1,328 ml, voided x2. Encouraged fluids as tolerated. Encouraged fluids as tolerated. Encouraged to attend groups activities. All needs met. Safety measures on place. Call light within reach, bed in lowest position and locked, padded rails up bilaterally. Patient endorsed to day shift nurse.
--- NOTE | 2017-06-26 07:20 | NUR ---
Start of shift note SBAR report rcv'd. Pt was admitted for benzo dependence and and is being continued on her subutex maintenance. Pt is allergic to PCN, is on a regular diet and is a full code. Pt has a PMHx of anxiety, depression, panic disorder, anorexias nervosa, cyst in the brain and a HX of alcohol abuse. Pt is on an 8 day ativan taper. Pt is currently resting in bed, pt has no complaints at this time. Will continue to monitor pt.
[2017-06-26] MEDS: OMEGA PO SCH (09:00)
[2017-06-26] MEDS: MULTIVITAMINS,THERAPEUTIC TABLET PO SCH (09:00)
[2017-06-26] MEDS: VITAMIN D3 2000 UNITS PO SCH (09:00)
[2017-06-26] MEDS: VITAMIN E PO SCH (09:00)
[2017-06-26] MEDS: UBIQUINOL 100 MG PO SCH (09:00)
[2017-06-26] MEDS: BUPRENORPHINE HCL 2 MG TAB.SUBL SL SCH ×2 (09:49→21:11)
[2017-06-26] MEDS: LORAZEPAM 1 MG TABLET PO SCH ×3 (09:49→21:10)
[2017-06-26] MEDS: SERTRALINE HCL 100 MG TABLET PO SCH (09:49)
[2017-06-26] MEDS: CARBAMAZEPINE 200 MG TABLET PO SCH ×3 (09:50→21:12)
--- NOTE | 2017-06-26 09:55 | NUR ---
communication Pt has a CIWA of 11 and states that she feels like she isn't feeling well. Pt noted to have a runny nose and congestion. Pt requesting to see Dr Gonzales. Notified Dr Gonzales. Pt requesting to take her vitamins at at later time. Will continue to monitor pt.
--- NOTE | 2017-06-26 10:00 | NUR ---
Medications refused Pt states that she does not want her vitamins. Medications held at this time.
[2017-06-26] MEDS: ONDANSETRON ODT 4 MG TAB.RAPDIS SL PRN (12:44)
--- NOTE | 2017-06-26 12:44 | NUR ---
PRN administration Pt c/o body aches, nausea and anxiety. Administered PRN clondine, vistaril, zofran and baclofen. CIWA 8. Will continue to monitor pt. All other needs addressed at this time.
[2017-06-26] MEDS ORDERED: LORAZEPAM 1 MG TABLET PO PRN (12:45)
--- NOTE | 2017-06-26 13:14 | NUR ---
Reassessment Pt states that the zofran was effective in alleviating her nausea. Will continue to monitor pt.
--- NOTE | 2017-06-26 13:44 | NUR ---
Reassessment Pt states that her anxiety and muscle aches are gone. Pt states that she is comfortable at this time. Will continue to monitor pt.
--- NOTE | 2017-06-26 15:49 | NUR ---
Endorsement SBAR report endorsed to Nurse. Pt has no complaints at this time.
--- NOTE | 2017-06-26 15:54 | NUR ---
Day shift nurse endorsed client, for continuity of care. client is a/o x4, she denies any discomfort at this time. Will continue to monitor.
--- NOTE | 2017-06-26 19:01 | NUR ---
END OF SHIFT & PRN Bentyl 20mg Po, Vistaril 25mg PO, Baclofen 20mg PO for abdominal spasms, anxiety, and generalized muscle spasms respectively. Call light within reach. Incoming nurse to reassess. Client is in room, a/ox4. she is on Ativan taper/Subutex taper, tolerating well. CIWA 7 @ 1600. Adequate PO fluid intake 1500, void x 3, stool x 1. She is on seizure precautions. she reports of allergy to PCN, she is full code, Regular diet. Side rails x 2 up/padded. Call light within reach.
--- NOTE | 2017-06-26 19:15 | NUR ---
START OF SHIFT Patient is a 31 year old female admitted to [facility] on 06-21-17 for Benzo detox and Suboxone detox. Patient has PMH of Anxiety, Depression, Panic disorder, anorexia nervosa, Brain cyst, and ETOH dependence in remission. Patient on Fall and seizure precautions. She is a full code, on a regular diet, with allergy to Penicillin. Patient with complaints of difficulty with benzo withdrawal She reports feeling extremely anxious, restless, panicky, agitated, and feels her body is tremulous on the inside. CIWA 10. Patient vital signs at 1923 BP 104/70, P 74, R 16, SPO2 100% on RA, T 98.6. Patient received Ativan 1 mg PO PRN at 1924 with effect pending. Patient mood noted as tearful, anxious, and apologetic for feeling emotional. Patient given supportive counseling, and encouraged verbalization of feelings and deep breathing. Denies any SI or HI. Tolerating diet and fluids. Safety measures in place, Side rails up x 2, Call light within reach.
[2017-06-26] MEDS: LORAZEPAM 1 MG TABLET PO PRN (19:25)
--- NOTE | 2017-06-26 19:25 | NUR ---
PRN MEDICATION Patient received Ativan 1 mg PO PRN at 1925 for CIWA 10, and noted increase in withdrawal symptoms. Patients mood noted as tearful, anxious, restless and fidgety with noted akathisia. effect pending.
--- NOTE | 2017-06-26 20:01 | NUR ---
reassessment of patient patient reassessed one hour after Bentyl 20mg PO, Vistaril 25mg PO, Baclofen 20mg PO for abdominal spasms, anxiety, and generalized muscle spasms respectively. Patient with no further abdominal spasms, or muscle spasms noted. Anxiety continues but patient states relieved after PRN Ativan given at 1925.
--- NOTE | 2017-06-26 20:25 | NUR ---
Reassessment of patient Patient reassessed one hour after PRN Ativan 1mg given for CIWA of 10, increased benzo withdrawal symptoms including anxiety of a 9 out of 10, feelings of panic, restlessness, tremors on inside of body, and inability to sit still. Patient now reports feeling less anxious, with anxiety a 4 out of 10, affect full range with ability to smile, CIWA 7. Noted effectiveness with PRN Ativan.
--- NOTE | 2017-06-26 23:30 | NUR ---
PRN Medication Patient received Benadryl 50 mg PO Prn for insomnia Effect pending Patient received Clonidine 0.1mg PO PRN for anxiety, restlessness, BP 123/94, P 97, R 18. Effect pending
--- NOTE | 2017-06-27 00:30 | NUR ---
reassessment of patient Patient reassessed one hour after receiving Benadryl 50 mg PO PRN for insomnia. Noted effective as patient resting comfortably with eyes closed. Patient reassessed one hour after receiving Clonidine 0.1mg PO PRN for anxiety. Patient currently resting comfortably in bed with eyes closed. No further complaints of anxiety noted.
[2017-06-27] MEDS: MAGNESIUM HYDROXIDE 30 ML LIQUID UDC PO PRN (01:20)
[2017-06-27] MEDS: DULCOEASE PO PRN ×2 (01:20→12:18)
[2017-06-27] MEDS: DULCOLAX PO PRN (01:20)
--- NOTE | 2017-06-27 01:26 | NUR ---
PRN MEDICATION Patient with c/o constipation. Received Dulcolax 10 mg 2 tablets, Dulco-ease 100 mg 2 capsules and MOM 30 ml PO at 0121. Effect pending.
--- NOTE | 2017-06-27 02:26 | NUR ---
Reassessment of patient Patient reassessed one hour after prn Dulcolax, Dulcoease, and MOM administered. Patient without noted BM as of yet. Bowel sounds active all quadrants. Patient resting comfortably. No pain noted. Will continue to monitor
--- NOTE | 2017-06-27 04:00 | NUR ---
CIWA/COWS deferred Vital signs refused. Patient refused vital signs at 0400, patient resting comfortably in bed, Breathing even and unlabored. R 16. CIWA/COWS deferred for sleep
--- NOTE | 2017-06-27 06:54 | NUR ---
End of shift note Patient is a 31 year old female admitted to [facility] on 06-21-17 for Benzo and Suboxone detox. Patient has PMH of Anxiety, Depression, Panic disorder, anorexia nervosa, Brain cyst, and ETOH dependence in remission. Patient on Fall and seizure precautions. She is a full code, on a regular diet, with an allergy to Penicillin. Patient with complaints of difficulty with prolonged benzo withdrawal. Symptoms include tremors felt on inside, feeling of panic, severe anxiety, restlessness, feeling fidgety, and having agitation. Patient vital signs at 1924 BP 104/70, P 74, R 16, SPO2 100% on RA, T 98.6. CIWA 10. Patient received Ativan 1 mg PO PRN at 1925 with good effect. Patient Vital signs at 1999 BP 106/70, P 70, R 16, T 98.6, SPO2 99% on RA. CIWA 7, COWS 3. Patient received Benadryl 50 mg PO PRN for insomnia at 2319 with good effect, as well as PRN Clonidine 0.1mg for anxiety/restlessness at 2328 with good effect noted. Patient vital signs at 2330 BP 123/94, P 97, R 18, SPO2 99% on RA, T 98.0 CIWA 5, COWS 5. VS at 0400 refused, CIWA and COWS deferred for sleep. Patient with C/O constipation received PRN Dulcolax, Dulco ease, and MOM with no noted effect as of late. Mood is labile fluctuating between severe anxiety to euthymia. Tolerating diet and fluids. Intake 1800 ml, output 3 voids. Slept a total of 7 hours. Patient safety measures in place, Side rails up x 2, Call light within reach. Report given to AM nurse
[2017-06-27 08:00] VITALS: BP 109/53
--- NOTE | 2017-06-27 08:00 | NUR ---
START OF SHIFT NOTE 31 year old female admitted for benzo and suboxone detox. Allergy to PCN. Regular diet. Full code. History of anxiety, depression, panic disorder, anorexia, unspecified cyst on brain, history of alcohol abuse. On fall and seizure precaution. On 8 day ativan taper, subutex taper, with PRN ativan as needed per CIWA. Received report from night RN. Pt received PRN benadryl, clonidine, dulcolax and dulcolease. 0800 nurse rounds, pt sleeping but awakes to verbal, oriented x 4. Bed in low position, side rails up x 2 and padded. Call light within reach. Will continue to monitor.
[2017-06-27] MEDS ORDERED: BUPRENORPHINE HCL 2 MG TAB.SUBL SL SCH (09:00)
[2017-06-27] MEDS: VITAMIN D3 2000 UNITS PO SCH (09:00)
[2017-06-27] MEDS: SERTRALINE HCL 100 MG TABLET PO SCH (09:05)
[2017-06-27] MEDS: MULTIVITAMINS,THERAPEUTIC TABLET PO SCH (09:06)
[2017-06-27] MEDS: BISACODYL 5 MG TABLET.DR PO PRN (09:06)
--- NOTE | 2017-06-27 09:06 | NUR ---
PRN MEDICATION ADMINISTRATION Pt requesting dulcolax due to no BM x 3 days. States she normally has a BM once a day or every other day. Gave Dulcolax PRN. Will monitor.
[2017-06-27] MEDS: CARBAMAZEPINE 200 MG TABLET PO SCH ×3 (09:07→21:38)
[2017-06-27] MEDS: UBIQUINOL 100 MG PO SCH (09:08)
[2017-06-27] MEDS: LORAZEPAM 1 MG TABLET PO SCH ×3 (09:25→21:38)
[2017-06-27] MEDS: CLONIDINE HCL 0.1 MG TABLET PO PRN ×2 (09:40→19:27)
--- NOTE | 2017-06-27 09:40 | NUR ---
PRN MEDICATION ADMINISTRATION Pt reports elevated anxiety. Given Clonidine PRN. Will reassess.
[2017-06-27] MEDS: VITAMIN E PO SCH ×2 (09:43→09:54)
[2017-06-27] MEDS: OMEGA PO SCH (09:44)
[2017-06-27] MEDS: BACLOFEN 20 MG TABLET PO PRN (09:44)
--- NOTE | 2017-06-27 09:44 | NUR ---
PRN [id number] ADMINISTRATION Pt reports muscle aches/cramping. Given Baclofen PRN. Will reassess.
--- NOTE | 2017-06-27 10:00 | NUR ---
Activity Group Note: Attempt made for group participation. Client refused. Will attempt when time permits.
--- NOTE | 2017-06-27 10:06 | NUR ---
PRN MEDICATION REASSESSMENT Pt given Dulcolax at 0906. No BM yet this am. Will monitor for results.
--- NOTE | 2017-06-27 10:44 | NUR ---
PRN MEDICATION REASSESSMENT. Pt reports decrease in anxiety post receiving Clonidine. Reports body aches resolved after receiving Baclofen.
[2017-06-27 12:00] VITALS: BP 119/82
[2017-06-27] MEDS: IBUPROFEN 400 MG TABLET PO PRN (12:17)
[2017-06-27] MEDS: LORAZEPAM 1 MG TABLET PO PRN (12:18)
--- NOTE | 2017-06-27 12:18 | NUR ---
PRN MEDICATION ADMINISTRATION Given Ativan 1 mg for CIWA 8. Will reassess in one hour.
--- NOTE | 2017-06-27 12:18 | NUR ---
PRN MEDICATION ADMINISTRATION Pt reports no BM since am dose of Dulcolax. Gave Dulcolease PRN medication. Pt reports mild headache. Gave Motrin PRN. Will reassess.
--- NOTE | 2017-06-27 13:45 | NUR ---
Activity Group Note: Attempt made for group participation. Client refused. Will attempt again when time permits.
--- NOTE | 2017-06-27 13:57 | NUR ---
PRN MEDICATION REASSESSMENT Pt was off unit with data base administrator, Thang, so RN was unable to reassess at 1318 after pt was given PRN medications at 1218 of Motrin for headache and Dulcolease for constipation. At 1357, Pt back on unit. States headache resolved. No BM yet this shift. Will continue to monitor.
--- NOTE | 2017-06-27 13:57 | NUR ---
PRN MEDICATION REASSESSMENT Pt was given Ativan 1 mg PRN for CIWA 8 at 1218. RN unable to reassess at 1318 as pt off unit in meeting with Thang, weatherization administrator. 1357, Pt back on unit. CIWA 2.
[2017-06-27] MEDS: HYDROXYZINE PAMOATE 25 MG CAPSULE PO PRN ×2 (14:07→21:38)
--- NOTE | 2017-06-27 14:07 | NUR ---
PRN MEDICATION ADMINISTRATION Pt reports anxiety 01/17, requesting Vistaril. Vistaril given. Will reassess.
--- NOTE | 2017-06-27 15:07 | NUR ---
PRN MEDICATION REASSESSMENT Pt reports decrease in anxiety one hour after receiving Vistaril PRN.
[2017-06-27 15:39] VITALS: BP 117/80
[2017-06-27 16:00] VITALS: BP 117/80
--- NOTE | 2017-06-27 17:19 | NUR ---
Pt refused EKG
--- NOTE | 2017-06-27 19:00 | NUR ---
END OF SHIFT NOTE 31 year old female admitted for benzo and suboxone detox. Allergy to PCN. Regular diet. Full code. History of anxiety, depression, panic disorder, anorexia, unspecified cyst on brain, history of alcohol abuse. On fall and seizure precaution. On 8 day ativan taper, subutex taper, with PRN ativan as needed per CIWA. Received Dulcolax and Dulcolease for constipation but no BM this shift. Received Clonidine x 1 and Vistaril x 1 for anxiety which was effective. Received Ativan PRN x 1 for CIWA 8 at 1218. CIWA decreased to 2 at reassessment. Given Motrin PRN for headache x 1 and pt reported effective. Baclofen x 1 for muscle cramps and pt reported effective. Poor po intake, not eating meals but states she had 2 protein bars, one smoothie, cheese, water melon, chips. Good fluid intake. Report given to night RN. . Bed in low position, side rails up x 2 and padded. Call light within reach.
--- NOTE | 2017-06-27 19:15 | NUR ---
START OF SHIFT Patient is a 31 year old female admitted to [facility] on 06-21-17 for Benzo detox and Suboxone detox. Patient has PMH of Anxiety, Depression, Panic disorder, anorexia nervosa, Brain cyst, and ETOH dependence in remission. Patient on Fall and seizure precautions. She is a full code, on a regular diet, with allergy to Penicillin. Patient continues on Ativan and Subutex taper. Last COWS 1 and CIWA 7 at 1600. Vital signs stable. Patient remains with anxiety and lability of mood. Upon assessment she reports she had a BM today. She reports anxiety 5 out of 10 and restlessness and requested a PRN clonidine. Denies any SI or HI. Tolerating diet and fluids. Safety measures in place, Side rails up x 2, Call light within reach.
[2017-06-27 19:25] VITALS: BP 116/77
--- NOTE | 2017-06-27 19:27 | NUR ---
PRN medication Clonidine 0.1mg PO given for anxiety/restlessness 01/17. BP 116/77 P 70. Effect pending.
[2017-06-27 20:00] VITALS: BP 116/78
--- NOTE | 2017-06-27 20:27 | NUR ---
Reassessment of patient Patient reassessed one hour after Clonidine 0.1mg PO given for anxiety/restlessness 01/17. upon reassessment patient reports some decrease,12/18 but patient reports anxiety is chronic and something she is continuing to deal with.
[2017-06-27] MEDS: diphenhydrAMINE 50 MG CAPSULE PO PRN (21:38)
--- NOTE | 2017-06-27 21:38 | NUR ---
PRN medication Vistaril 25 mg PO given at 2137 for complaints of anxiety7/10 and restlessness. Effect pending.
--- NOTE | 2017-06-27 21:38 | NUR ---
PRN medication Benadryl 50 mg PO given at 2137 for complaints of difficulty sleeping effect pending
--- NOTE | 2017-06-27 22:38 | NUR ---
Reassessment of patient patient reassessed one hour after PRN Benadryl 50 mg given for sleeplessness Effect noted, patient resting comfortably in bed with eyes closed. Breathing even and unlabored. Patient reassessed one hour after Vistaril 25 mg PO given for anxiety. Effect noted. Patient resting comfortably with no further c/o anxiety.
[2017-06-28] VITALS: BP 112/63
--- NOTE | 2017-06-28 00:14 | NUR ---
0000 COWS/CIWA deferred for sleep
[2017-06-28 03:45] VITALS: BP 101/54
--- NOTE | 2017-06-28 04:00 | NUR ---
PRN medication VS at 0345 101/54, P 72, R 16, T 98.6, SPO2 100% on RA. COWS 3, CIWA 5. Patient reporting feeling anxious, irritable and having abdominal spasms. Patient given Bentyl 20 mg PO at 0345 for abdominal spasms, PAtient given vistaril 25 mg PO at 0345 for anxiety. Effect pending.
--- NOTE | 2017-06-28 04:45 | NUR ---
Reassessment of patient Patient reassessed one hour after PRN Bentyl given for abdominal spasms. Patient resting comfortably in bed with eyes closed. No further complaints offered. Patient reassessed one hour after Vistaril 25 mg PO given for anxiety, irritability. Patient resting in bed with eyes closed Breathing even and unlabored. R 16.
[2017-06-28] MEDS: BACLOFEN 20 MG TABLET PO PRN ×2 (06:38→14:37)
[2017-06-28] MEDS: IBUPROFEN 400 MG TABLET PO PRN ×3 (06:38→20:42)
--- NOTE | 2017-06-28 06:45 | NUR ---
PRN medication Motrin 400 mg PO PRN given at 0638 for headache, generalized pain at 0638. Effect pending Patient received PO Baclofen 20mg PRN at 0638 for muscle spasms. Effect pending.
--- NOTE | 2017-06-28 07:07 | NUR ---
End of Shift note Patient is a 31 year old female admitted to [facility] on 06-21-17 for Benzodiazepine and Suboxone Detox. Patient has PMH of Anxiety, Depression, Panic disorder, anorexia nervosa, Brain cyst, and ETOH dependence in remission. Patient is on fall and seizure precautions. She is a full code, on a regular diet, with an allergy to Penicillin. Patient remains on Subutex taper and continues on Ativan taper for Benzo detox. Patient remains with anxiety, irritability, feelings of anger, and lability of mood. Vital signs at 1925 BP 116/77 P 70, R 18, SPO2 100% on RA, T 97.8. COWS 4, CIWA 5. Clonidine 0.1mg PO given for anxiety/restlessness 5/10. Fair effect noted after one hour. Benadryl 50 mg PO given at 2138 for complaints of difficulty sleeping with minor effect noted but continues with sleep pattern disturbance as evidenced by multiple awakening throughout night. Vistaril 25 mg PO given at 2138 for complaints of anxiety 7/10 and restlessness. Effect fair. VS at 0345 BP 101/54, P 72, R 16, SPO2 100% on RA, T 98.6. CIWA 6 COWS 6. Bentyl 20 mg PO given at 0345 for c/o abdominal spasms effect noted. Vistaril 25 mg PO given for anxiety/ irritability 7/10 at 0345 effect fair. Patient woke up again at 0545 Patient reports not sleeping well and has questions regarding Subutex. Informed patient of her current dose which has been tapered. Patient adamant that she is not tapering from Subutex, and plans on continuing Suboxone maintenance after discharge. Charge nurse notified and will notify MD. Patient upset, angry and having a very difficult time with this information. VSS. Patient reports she is having muscle spasms and headache. Baclofen 20 mg PO given at 0635 as well as Motrin 400 mg Effect pending. Supportive counseling and active listening given to patient. Patient slept a total of 3 hours, Intake 2210 output 3 voids 1 BM. Safety measures in place. Call light within reach. Report given to AM nurse.
--- NOTE | 2017-06-28 07:10 | NUR ---
Start of shift note SBAR report rcv'd. Pt was admitted for benzo and opiate dependence. Pt has an allergy to PCN, is a full code and is on a regular diet. Pt has a PMHx of anxiety, depression, panic disorder, anorexia nervosa, a cyst of the brain, hx of alcohol abuse. Pt states that she wants her medications as soon as possible. Will administer per MD order. All other needs addressed at this time. Will continue to monitor pt.
[2017-06-28 08:00] VITALS: BP 120/76
[2017-06-28] MEDS: CARBAMAZEPINE 200 MG TABLET PO SCH ×3 (08:17→20:41)
[2017-06-28] MEDS: SERTRALINE HCL 100 MG TABLET PO SCH (08:17)
[2017-06-28] MEDS: LORAZEPAM 1 MG TABLET PO SCH ×2 (08:17→20:41)
[2017-06-28] MEDS: VITAMIN E PO SCH (08:20)
[2017-06-28] MEDS: VITAMIN D3 2000 UNITS PO SCH (08:20)
[2017-06-28] MEDS: OMEGA PO SCH (08:20)
[2017-06-28] MEDS: UBIQUINOL 100 MG PO SCH (08:20)
--- NOTE | 2017-06-28 08:20 | NUR ---
Medication refusal Pt refused her vitamins, stated "they aren't right yet. I don't want to take them". Will continue to monitor pt.
[2017-06-28] MEDS: MULTIVITAMINS,THERAPEUTIC TABLET PO SCH (08:21)
[2017-06-28] MEDS: CLONIDINE HCL 0.1 MG TABLET PO PRN ×3 (08:24→20:42)
--- NOTE | 2017-06-28 08:24 | NUR ---
PRN administration Pt c/o anxiety, requested clonidine. Administered clonidine per MD order. Will continue to monitor pt.
[2017-06-28] MEDS ORDERED: BUPRENORPHINE HCL 2 MG TAB.SUBL SL SCH (09:00)
--- NOTE | 2017-06-28 09:24 | NUR ---
Reassessment Pt states that she feels less anxious and that the medication was effective.
[2017-06-28] MEDS: HYDROXYZINE PAMOATE 25 MG CAPSULE PO PRN (14:37)
--- NOTE | 2017-06-28 14:37 | NUR ---
PRN administration Pt c/o severe anxiety, muscle aches, and a headache of 4/10. Administered PRN clonidine, vistaril, clonidine and baclofen per MD order. Will continue to monitor pt.
--- NOTE | 2017-06-28 15:37 | NUR ---
Reassessment Pt states that the medication was effective in alleviating her headache, anxiety and muscle aches. Pt states that she feels "Ok" at this time. Will continue to monitor pt.
[2017-06-28 16:30] VITALS: BP 98/52
--- NOTE | 2017-06-28 19:12 | NUR ---
End of shift note Pt was admitted for benzo and opiate dependence. Pt has an allergy to PCN, is a full code and is on a regular diet. Pt has a PMHx of anxiety, depression, panic disorder, anorexia nervosa, a cyst of the brain, hx of alcohol abuse. Pt is on an extended Subutex and ativan taper to manage the s/s of her withdrawal. During the shift pt had multiple PRN medications to manage her s/s of withdrawal. Pt has PRN clondine at 0824, then at 1437 she had Clonidine, baclofen, ibuprofen and Vistaril with effectiveness. Pt has no complaints at this time. Pt only ate 100% of her lunch, but ate snacks multiple times throughout the day. Will endorse SBAR to oncoming nurse.
[2017-06-28 20:00] VITALS: BP 130/78
[2017-06-28] MEDS: diphenhydrAMINE 50 MG CAPSULE PO PRN (20:41)
[2017-06-28] MEDS: DULCOEASE PO PRN (20:42)
[2017-06-28] MEDS: DULCOLAX PO PRN (20:44)
[2017-06-28] MEDS ORDERED: METHOCARBAMOL 750 MG TABLET PO ONE (21:15)
--- NOTE | 2017-06-29 07:15 | NUR ---
Start of shift note SBAR report rcv'd. Pt was admitted for benzo and opiate dependence. Pt has an allergy to PCN, is a full code and is on a regular diet. Pt is on an extended ativan and subutex taper to manage her s/s of withdrawal. Pt has a PMHx of anxiety, depression, panic disorder, anorexia nervosa, a cyst of the brain, hx of alcohol abuse. Pt is currently requesting her robaxin, unable to verify orders at this time d/t [employer] down time. Will contact Dr Gonzales to verify orders. Pt has no further complaints at this time All needs addressed.
[2017-06-29 08:00] VITALS: BP 120/66
--- NOTE | 2017-06-29 08:14 | NUR ---
PRN administration Pt c/o severe anxiety. Administered PRN clonidine per MD order during downtime.
--- NOTE | 2017-06-29 08:14 | NUR ---
Medication administration 0900 medications administered during downtime. See MAR in chart. Pt refused all vitamins.
[2017-06-29] MEDS: VITAMIN D3 2000 UNITS PO SCH (09:00)
[2017-06-29] MEDS: OMEGA PO SCH (09:00)
[2017-06-29] MEDS: LORAZEPAM 1 MG TABLET PO SCH ×2 (09:00→20:03)
[2017-06-29] MEDS: VITAMIN E PO SCH (09:00)
[2017-06-29] MEDS: CARBAMAZEPINE 200 MG TABLET PO SCH ×3 (09:00→20:04)
[2017-06-29] MEDS: MULTIVITAMINS,THERAPEUTIC TABLET PO SCH (09:00)
[2017-06-29] MEDS ORDERED: BUPRENORPHINE HCL 2 MG TAB.SUBL SL SCH (09:00)
[2017-06-29] MEDS: SERTRALINE HCL 100 MG TABLET PO SCH (09:00)
[2017-06-29] MEDS ORDERED: LORAZEPAM 1 MG TABLET PO SCH (09:00)
[2017-06-29] MEDS: UBIQUINOL 100 MG PO SCH (09:00)
--- NOTE | 2017-06-29 09:14 | NUR ---
Reassessment Pt states that her anxiety level have improved. Will continue to monitor pt.
[2017-06-29] MEDS: METHOCARBAMOL 750 MG TABLET PO PRN ×2 (09:41→22:13)
--- NOTE | 2017-06-29 09:41 | NUR ---
PRN administration Pt states that she has body aches 02/17. Administered PRN robaxin per MD order. Will continue to monitor pt
--- NOTE | 2017-06-29 10:41 | NUR ---
Reassessment Pt states that her muscle aches are gone. All other needs addressed at this time. Will continue to monitor pt.
[2017-06-29 14:15] VITALS: BP 125/83
[2017-06-29] MEDS: HYDROXYZINE PAMOATE 25 MG CAPSULE PO PRN ×2 (14:46→22:13)
[2017-06-29] MEDS: IBUPROFEN 400 MG TABLET PO PRN ×2 (14:46→20:04)
[2017-06-29] MEDS: DULCOLAX PO PRN (14:47)
[2017-06-29] MEDS: CLONIDINE HCL 0.1 MG TABLET PO PRN (14:47)
--- NOTE | 2017-06-29 14:47 | NUR ---
PRN administration Pt c/o a headache of 4/10, anxiety, and constipation. Administered PRN ducolax, clondine, vistaril and motrin. Will continue to monitor pt.
--- NOTE | 2017-06-29 15:47 | NUR ---
Reassessment Pt states that her anxiety is gone, that her muscle aches are gone. Pt has not had a BM at this time. Will continue to monitor pt. Pt is in good spirits, states that she is feeling "good". All needs addressed at this time.
[2017-06-29 16:42] VITALS: BP_SYST 114; BP_SYST 120; BP_DIAS 78; BP_DIAS 81
--- NOTE | 2017-06-29 17:26 | NUR ---
MD communication Pt requested nurse, requested vital signs to be checked, pt then stated "I am so anxious, I feel like I want to kill myself. I need ativan to get myself through this." Asked pt if she had a plan, stated I could offer her seroquel to help with her anxiety, pt stated "I don't want that, it might make my anxiety work because I have never taken`it. But I have too much to live for" Pt made several requests stating "I just want ativan and subutex". Pt placed on a 1:1, Dr Gonzales and Dr Daniels notified. Crisis team called.
--- NOTE | 2017-06-29 17:45 | NUR ---
Crisis team notified Crisis team notified, they are unable to come at this time. Will continue to monitor pt. Pt continues on a 1:1.
[2017-06-29] MEDS: QUETIAPINE FUMARATE 25 MG TABLET PO PRN (18:36)
--- NOTE | 2017-06-29 18:40 | NUR ---
PRN administration Pt c/o severe anxiety, administered PRN seroquel per MD order. Will continue to monitor pt.
--- NOTE | 2017-06-29 18:58 | NUR ---
End of shift note rcv'd. Pt was admitted for benzo and opiate dependence. Pt has an allergy to PCN, is a full code and is on a regular diet. Pt is on an extended ativan and subutex taper to manage her s/s of withdrawal. Pt has a PMHx of anxiety, depression, panic disorder, anorexia nervosa, a cyst of the brain, hx of alcohol abuse. Pt had multiple PRN medications throughout the shift to manage her s/s of withdrawal and anxiety. Pt recently had a seroquel for her severe anxiety, pt is pending a crisis team evaluation for stating "I just want to kill myself". Crisis team is aware, but unable to come at this time. Charge nurse, LIZZIE and Dr Gonzales are aware. Pt continues on a 1:1. All needs addressed at this time.
--- NOTE | 2017-06-29 19:10 | NUR ---
Start of Shift Misty Pt is a 31 year old female admitted for Benzo/Opiate dependence, placed on fixed Ativan and Subutex taper. Pt reported use of Klonopin 5-6mg/daily, Xanax 4-6 bars/daily and Suboxone 6mg/daily. 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 Pt reports allergies to PCN, regular diet, fall/sz precaution (denies hx of seizures) and full code. Pt is placed on 1:1 due verbalization of suicidal thoughts. Pt verbalizes feeling anxious, reports feeling on "edge". Pt is in emotional distress. Pt redirected. Medications due, awaiting crisis team, sitter at bedside, safety measures in place, call light within reach, side rails up x2, will continue to monitor.
--- NOTE | 2017-06-29 19:50 | NUR ---
Crisis Plastics Tooling Engineer evaluated pt. Crisis steam shovel operating engineer stated in report, "She again denies that she is suicidal or that she has any intent or thoughts to harm herself or anyone else. She denies HI/AH/VH. She is not meeting criteria for a 5150".
[2017-06-29 20:00] VITALS: BP 143/80
--- NOTE | 2017-06-29 20:04 | NUR ---
PRN Administration Pt reports headache, rated 4/10. Motrin 400mg PRN administered Safety measures in place, will continue to monitor.
[2017-06-29] MEDS ORDERED: LORAZEPAM 1 MG TABLET PO PRN (20:30)
--- NOTE | 2017-06-29 21:04 | NUR ---
PRN Reassessment Upon reassessment, pt reports relief of headache. Needs met , Safety measures in place, will continue to monitor.
--- NOTE | 2017-06-29 22:13 | NUR ---
PRN Administration Pt reports body aches and feeling anxious. Robaxin 750mg PRN and Vistaril 50mg PRN administered. Safety measures in place. will continue to monitor.
--- NOTE | 2017-06-29 23:13 | NUR ---
PRN Reassessment Upon reassessment, Pt verbalizes relief of body aches. Pt states she is feeling "better". Needs met, safety measures in place, will continue to monitor.
[2017-06-30] VITALS: BP 108/60
--- NOTE | 2017-06-30 | NUR ---
Vital Signs/COWS & CIWA deferred BP 108/60, pulse 83, resp 16, SpO2 100% room air, temp 98, no pain COWS/CIWA deferred due to pt sleeping, to assess while pt is awake as ordered. Safety measures in place, will continue to monitor.
--- NOTE | 2017-06-30 04:00 | NUR ---
COWS & CIWA deferred VS refused at 0400 COWS/CIWA deferred due to pt sleeping, to assess while pt is awake as ordered. Safety measures in place, will continue to monitor.
[2017-06-30] MEDS: METHOCARBAMOL 750 MG TABLET PO PRN ×2 (06:33→22:36)
--- NOTE | 2017-06-30 06:33 | NUR ---
Robaxin PRN Pt reports muscle aches throughout body Robaxin 750mg PRN administered. Will endorse onto day shift nurse to monitor effectiveness.
--- NOTE | 2017-06-30 07:00 | NUR ---
End of Shift Pt is a 31 year old female admitted for Benzo/Opiate dependence, placed on fixed Ativan and Subutex taper. Pt reported use of Klonopin 5-6mg/daily, Xanax 4-6 bars/daily and Suboxone 6mg/daily. 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 Pt reports allergies to PCN, regular diet, fall/sz precaution (denies hx of seizures) and full code. During shift, Pt verbalized feeling anxious, reports feeling on "edge". Pt is in emotional distress, pt redirected and scheduled medications administered. At 1950, Crisis Collaborating Supervising Physician on unit and evaluated pt. Crisis steamblaster stated in reported, "She again denies that she is suicidal or that she has any intent or thoughts to harm herself or anyone else. She denies HI/AH/VH. She is not meeting criteria for a 5150", as stated in crisis team note. Motrin 400mg PRN, Robaxin 750mg PRN X2 and Vistaril 50mg PRN administered for headache, body aches and anxiety - all effective as stated by pt. Pt denies SI/HI, sitter remains at bed side, Pt slept for 7 hours, intake of 510 ml PO, voids x3 and stool x0. Safety measures in place, call light within reach, side rails up x2, endorsed to day shift nurse.
--- NOTE | 2017-06-30 07:33 | NUR ---
PRN MEDICATION REASSESSMENT Pt reports decrease in muscle soreness after Robaxin.
[2017-06-30 08:00] VITALS: BP 109/70
--- NOTE | 2017-06-30 08:00 | NUR ---
START OF SHIFT Pt is a 31 year old female admitted for Benzo/Opiate dependence, placed on fixed Ativan and Subutex taper. Pt reported use of Klonopin 5-6mg/daily, Xanax 4-6 bars/daily and Suboxone 6mg/daily. 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 Pt reports allergies to PCN, regular diet, fall/sz precaution (denies hx of seizures) and full code. Received report from night RN. Received PRN Motrin, Vistaril and Robaxin during the night. On 0800 nurse rounds, pt alert and oriented, bed in low position, locked, side rails up x 2 call light within reach. Will continue to monitor.
[2017-06-30] MEDS: SERTRALINE HCL 100 MG TABLET PO SCH (08:33)
[2017-06-30] MEDS: IBUPROFEN 400 MG TABLET PO PRN (08:33)
--- NOTE | 2017-06-30 08:33 | NUR ---
PRN MEDICATION ADMINISTRATION Given Motrin for general body aches.
[2017-06-30] MEDS: CARBAMAZEPINE 200 MG TABLET PO SCH ×4 (08:34→22:32)
[2017-06-30] MEDS: OMEGA PO SCH (08:46)
[2017-06-30] MEDS: VITAMIN E PO SCH (08:47)
[2017-06-30] MEDS: MULTIVITAMINS,THERAPEUTIC TABLET PO SCH (08:47)
[2017-06-30] MEDS: UBIQUINOL 100 MG PO SCH (08:47)
[2017-06-30] MEDS: VITAMIN D3 2000 UNITS PO SCH (08:47)
[2017-06-30] MEDS ORDERED: LORAZEPAM 1 MG TABLET PO SCH (09:00)
[2017-06-30] MEDS ORDERED: BUPRENORPHINE HCL 2 MG TAB.SUBL SL SCH (09:00)
--- NOTE | 2017-06-30 09:03 | NUR ---
PRN MEDICATION ADMINISTRATION Pt reporting anxiety. REquesting Seroquel PRN. Seroquel given. Addendum: 06/30/17 at 2004 by RONNY ESCALANTE RN Wrong time documentation. PRN Seroquel given at 1903
--- NOTE | 2017-06-30 09:33 | NUR ---
PRN MEDICATION REASSESSMENT Pt reports decrease in body aches after Motrin PRN.
[2017-06-30 12:00] VITALS: BP 137/87
[2017-06-30] MEDS: HYDROXYZINE PAMOATE 25 MG CAPSULE PO PRN (12:55)
[2017-06-30] MEDS: CLONIDINE HCL 0.1 MG TABLET PO PRN ×2 (12:56→22:32)
--- NOTE | 2017-06-30 12:56 | NUR ---
PRN MEDICATION ADMINISTRATION Pt reporting anxiety and requesting clonidine and vistaril. PRN meds given.
--- NOTE | 2017-06-30 13:56 | NUR ---
PRN MEDICATION REASSESSMENT RN to reassess for anxiety after Vistaril and Clonidine, however, pt now asleep.
[2017-06-30 16:00] VITALS: BP 106/76
[2017-06-30] MEDS: QUETIAPINE FUMARATE 25 MG TABLET PO PRN (19:03)
--- NOTE | 2017-06-30 19:03 | NUR ---
PRN MEDICATION ADMINISTRATION Pt reporting anxiety and requesting seroquel PRN. Seroquel given.
--- NOTE | 2017-06-30 19:15 | NUR ---
END OF SHIFT NOTE Pt is a 31 year old female admitted for Benzo/Opiate dependence, placed on fixed Ativan and Subutex taper. Pt reported use of Klonopin 5-6mg/daily, Xanax 4-6 bars/daily and Suboxone 6mg/daily. 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 Pt reports allergies to PCN, regular diet, fall/sz precaution (denies hx of seizures) and full code. Given PRN Motrin, clonidine, vistaril and seroquel this shift. Last CIWA and COWS 2. Denies eating breakfast, lunch or dinner. Reported to knuckler. Report given to night RN. Bed in low position, call light within reach, side rails up x 2.
[2017-06-30 20:00] VITALS: BP 124/77
--- NOTE | 2017-06-30 20:00 | NUR ---
START OF SHIFT NOTE RECEIVED REPORT FROM DAY SHIFT NURSE. PATIENT IS A 31 YEAR OLD FEMALE ADMITTED FOR BENZO/OPIATE DEPENDENCE. PATIENT WAS PLACED ON ATIVAN AND SUBUTEX TAPER. PATIENT IS ALLERGIC TO PENICILLIN. PATIENT REPORTS PMH OF ANXIETY, DEPRESSION, PANIC D/O, ANOREXIA NERVOSA AND CYST IN THE BRAIN. NO SEIZURE HISTORY. SKIN INTACT. PATIENT WAS GIVEN PRN SEROQUEL, CLONIDINE , MOTRIN AND VISTARIL. LAST COWS 2 AND CIWA 2. PATIENT IS 1:1 FOR EMOTIONAL DISTRESS /COMFORT. RECEIVED REPORT FROM DAY SHIFT NURSE. PATIENT ALERT AND ORIENTED X 4. RESPIRATION EVEN AND UNLABORED. PATIENT REPORTS ANXIETY AND SWEATING. NO N/V. DENIES PAIN AT THIS TIME. ON FALL/SEIZURE PRECAUTION. SAFETY MEASURES IN PLACE. CALL LIGHT IN REACH. WILL CONTINUE TO MONITOR
[2017-06-30] MEDS: LORAZEPAM 1 MG TABLET PO PRN (22:32)
--- NOTE | 2017-06-30 22:32 | NUR ---
MEDICATION ADMINISTRATION PATIENT'S 2100 MEDICATION WAS GIVEN LATE, PATIENT HAD A VISIT FROM A FAMILY MEMBER WITH ADMINISTRATIONS APPROVAL.
--- NOTE | 2017-06-30 22:32 | NUR ---
PRN ATIVAN , ROBAXIN AND CATAPRES ADMINISTRATION PATIENT ANXIOUS, RESTLESS, PACING INSIDE HER ROOM, SWEATING AND MUSCLE ACHES 04/19 PRN ATIVAN , ROBAXIN AND CATAPRES GIVEN. CONTINUE TO REDIRECT AND RELAXATION TECHNIQUE PROVIDED. WILL CONTINUE TO MONITOR
[2017-06-30] MEDS: diphenhydrAMINE 50 MG CAPSULE PO PRN (22:36)
--- NOTE | 2017-06-30 22:36 | NUR ---
PRN BENADRYL ADMINISTRATION PATIENT REQUESTS FOR SLEEP AID. PRN BENADRYL GIVEN. WILL MONITOR FOR EFFECTIVENESS
[2017-06-30] MEDS ORDERED: LORAZEPAM 1 MG TABLET ONE (22:45)
--- NOTE | 2017-06-30 23:45 | NUR ---
MARIA ELENA RENTERIA RE-ASSESSMENT PATIENT ASLEEP AT THIS TIME. WILL CONTINUE TO MONITOR.
--- NOTE | 2017-07-01 | NUR ---
COWS AND CIWA DEFERRED PATIENT SLEEPING. COWS AND CIWA DEFERRED. VS REFUSED. RESPIRATION EVEN AND UNLABORED. SAFETY MEASURES IN PLACE. CALL LIGHT IN REACH. WILL CONTINUE TO MONITOR
--- NOTE | 2017-07-01 07:32 | NUR ---
END OF SHIFT NOTE PATIENT IS A 31 YEAR OLD FEMALE ADMITTED FOR BENZO/OPIATE DEPENDENCE. PATIENT WAS PLACED ON ATIVAN AND SUBUTEX TAPER. PATIENT COMPLIANT WITH MEDICATIONS. PATIENT'S 2100 MEDICATION WAS GIVEN LATE, PATIENT HAD A VISIT FROM A FAMILY MEMBER WITH ADMINISTRATIONS APPROVAL. PATIENT WAS GIVEN PRN ATIVAN FOR CIWA 7. PATIENT WAS ANXIOUS, RESTLESS AND AGITATED . ATIVAN EFFECTIVE AND CIWA WENT DOWN TO 2. PATIENT WAS ALSO GIVEN PRN ROBAIN FOR MUSCLE ACHES AND BENADRYL FOR SLEEP. CONTINUE ON 1:1 FOR EMOTIONAL DISTRESS/COMFORT. ON FALL/SEIZURE PRECAUTION. SAFETY MEASURES IN PLACE. CALL LIGHT IN REACH. WILL CONTINUE TO MONITOR. SLEPT 4 HOURS. FLUID INTAKE 500 ML. VOIDED X 1. NO BM. LAST COWS 5 AND CIWA 2.
[2017-07-01 08:00] VITALS: BP 118/78
--- NOTE | 2017-07-01 08:00 | NUR ---
START OF SHIFT 31 year old female admitted for benzo and suboxone detox. Allergy to PCN. Regular diet. Full code. History of anxiety, depression, panic disorder, anorexia, unspecified cyst on brain, history of alcohol abuse. On fall and seizure precaution. Received report from night RN. Last CIWA 5 and COW 2 at 8 pm. Slept 4 hours. Received PRN Ativan x 1, Benadryl, Clonidine and Robaxin during director of strategic marketing. 0800 nursing rounds, pt asleep, respirations regular, 1 to 1 monitor at bedside. . Bed in low position and locked, side rails up x 2 and padded, call rosas within reach. Will continue to monitor.
[2017-07-01] MEDS: VITAMIN D3 2000 UNITS PO SCH (09:00)
[2017-07-01] MEDS ORDERED: LORAZEPAM 1 MG TABLET PO SCH (09:00)
[2017-07-01] MEDS: OMEGA PO SCH (09:00)
[2017-07-01] MEDS: VITAMIN E PO SCH (09:00)
[2017-07-01] MEDS: UBIQUINOL 100 MG PO SCH (09:00)
[2017-07-01] MEDS ORDERED: BUPRENORPHINE HCL 2 MG TAB.SUBL SL SCH (09:00)
[2017-07-01] MEDS: MULTIVITAMINS,THERAPEUTIC TABLET PO SCH (09:00)
[2017-07-01] MEDS: SERTRALINE HCL 100 MG TABLET PO SCH (09:15)
[2017-07-01] MEDS: BACLOFEN 20 MG TABLET PO PRN ×2 (09:16→21:26)
--- NOTE | 2017-07-01 09:16 | NUR ---
PRN MEDICATION ADMINISTRATION Pt reports muscle cramps and muscle aches. Given Baclofen PRN. Will Reassess.
[2017-07-01] MEDS: LORAZEPAM 1 MG TABLET PO PRN (09:24)
[2017-07-01] MEDS: CARBAMAZEPINE 200 MG TABLET PO SCH ×3 (09:26→21:25)
--- NOTE | 2017-07-01 10:16 | NUR ---
PRN REASSESSMENT Pt reports decreased muscle aches after receiving Baclofen one hour prior.
[2017-07-01] MEDS: METHOCARBAMOL 750 MG TABLET PO PRN ×3 (10:37→21:26)
--- NOTE | 2017-07-01 10:37 | NUR ---
PRN MEDICATION ADMINISTRATION Pt reports now that she continues to have muscle aches. Given Robaxin PRN.
[2017-07-01] MEDS: CLONIDINE HCL 0.1 MG TABLET PO PRN ×2 (10:38→22:28)
[2017-07-01] MEDS ORDERED: CLONIDINE HCL 0.1 MG TABLET PO ONE (11:30)
[2017-07-01] MEDS ORDERED: QUETIAPINE FUMARATE 25 MG TABLET PO ONE (11:30)
--- NOTE | 2017-07-01 11:37 | NUR ---
PRN MEDICATION REASSESSMENT Pt reports resolution of muscle aches after Robaxin PRN one hour prior.
[2017-07-01 12:00] VITALS: BP 96/52
--- NOTE | 2017-07-01 13:56 | NUR ---
COMMUNICATION Discussed with Dr. Daniels in regards to continuing Seroquel 25mg PRN for increase anxiety and agitation. Per Dr. Daniels, Okay to continue Seroquel. Received a telephone order for Seroquel 25mg PO [id number] for agitation. New order was read back and carried out.
[2017-07-01] MEDS: IBUPROFEN 400 MG TABLET PO PRN ×2 (15:37→22:27)
--- NOTE | 2017-07-01 15:38 | NUR ---
Robaxin 750mg po prn and Motrin 400mg po prn given for body aches.
[2017-07-01 16:00] VITALS: BP 127/72
--- NOTE | 2017-07-01 16:37 | NUR ---
PRN MEDICATION REASSESSMENT Pt reports decrease in body and muscle aches after receiving Motrin and Robaxin one hour prior.
[2017-07-01] MEDS ORDERED: CLON0.1T14 PO (17:02)
[2017-07-01] MEDS ORDERED: HYDR-3895 PO (17:02)
[2017-07-01] MEDS ORDERED: CARB200T8 PO ×2 (17:02)
[2017-07-01] MEDS ORDERED: SERT100T12 PO (17:02)
[2017-07-01] MEDS ORDERED: BACL20TA PO (17:02)
[2017-07-01] MEDS ORDERED: DIPH50CA37 PO (17:02)
[2017-07-01] MEDS ORDERED: METH-406 PO (17:43)
[2017-07-01] MEDS: HYDROXYZINE PAMOATE 25 MG CAPSULE PO PRN (18:22)
[2017-07-01] MEDS: QUETIAPINE FUMARATE 25 MG TABLET PO PRN (18:22)
--- NOTE | 2017-07-01 18:25 | NUR ---
PRN GIVEN Pt c/o anxiety and agitation. Vistaril 50mg PO PRN and Seroquel 25mg PO PRN was given. Medication adams well. Will continue to monitor.
--- NOTE | 2017-07-01 19:00 | NUR ---
END OF SHIFT NOTE 31 year old female admitted for benzo and suboxone detox. Allergy to PCN. Regular diet. Full code. History of anxiety, depression, panic disorder, anorexia, unspecified cyst on brain, history of alcohol abuse. On fall and seizure precaution. Received PRN Baclofen , Robaxin, Motrin for body aches, muscle aches, headache. PRN medications were effect for relief of symptoms. Last COWS 7 and CIWA 9 at 1700. Pt received Seroquel and Vistaril for anxiety at 1822. Endorsed to night RN who states she will reassess at 192. Report given to night RN. Bed in low position and locked, side rails up x 2 and padded, call rosas within reach.
--- NOTE | 2017-07-01 19:35 | NUR ---
START OF SHIFT Patient is a 31-year-old female admitted on 06/21/17 for Xanax, Suboxone, and Klonopin substance abuse. 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 Patient is FULL code, regular diet, and allergic to Penicillin. Upon assessment, patient complains of back pain that carlin and radiates, 8/10. Patients skin is intact. Patient is on fall and seizure precautions. Patient completed modified tapers for Subutex and Ativan and is scheduled for discharge tomorrow. Patients bed is locked in low position, side rails up x2, call light within reach, safety measures in place. Will continue to monitor.
[2017-07-01 20:00] VITALS: BP 113/68
[2017-07-01] MEDS: BISACODYL 5 MG TABLET.DR PO PRN (21:26)
--- NOTE | 2017-07-01 21:26 | NUR ---
PRN DULCOLAX, BACLOFEN, & ROBAXIN Patient complains of constipation and severe back pain. Patient was given PRN Dulcolax for constipation, Baclofen and Robaxin for back pain and muscles spasms. Patient's respirations are even and unlabored; patient is in noticeable distress due R/T pain level. Bed in low position, side rails up x2, call light within reach. Will reassess in one hour.
--- NOTE | 2017-07-01 22:16 | NUR ---
PRN BACLOFEN & ROBAXIN REASSESSMENT Patient reports that pain has decreased very little; PRN Baclofen and Robaxin only slightly effective. Patient presents with some facial grimace. Safety measures in place, will continue to monitor.
[2017-07-01] MEDS: diphenhydrAMINE 50 MG CAPSULE PO PRN (22:28)
--- NOTE | 2017-07-01 22:28 | NUR ---
PRN MOTRIN, CATAPRES, & BENADRYL Patient complains of back pain and expresses anxiety and agitation. Patient also reports inability to sleep and requests sleep aid. PRN Motrin given for pain, Catapres given for anxiety and agitation, Benadryl given for insomnia. Will reassess in one hour.
--- NOTE | 2017-07-01 23:28 | NUR ---
PRN MOTRIN, CATAPRES, & BENADRYL REASSESSMENT Patient reports little to no change in pain level, and reports feelings of anxiety. Patient is unable to sleep; PRN medications have not yet reached effectiveness, will continue to monitor.
[2017-07-02] VITALS: BP 122/72
[2017-07-02] MEDS ORDERED: KETOROLAC TROMETHAMINE 30 MG INJ ONE (00:41)
[2017-07-02] MEDS: QUETIAPINE FUMARATE 25 MG TABLET PO PRN ×2 (01:49→08:36)
[2017-07-02] MEDS: HYDROXYZINE PAMOATE 25 MG CAPSULE PO PRN ×2 (01:49→08:36)
--- NOTE | 2017-07-02 01:49 | NUR ---
PRN VISTARIL AND SEROQUEL Patient reports anxiety and agitation, and appears visibly restless. PRN Vistaril and Seroquel given for anxiety and agitation. Will reassess in one hour.
[2017-07-02] MEDS: KETOROLAC TROMETHAMINE 30 MG INJ IM PRN ×2 (02:45→08:49)
[2017-07-02] MEDS: ONDANSETRON ODT 4 MG TAB.RAPDIS SL PRN (02:46)
--- NOTE | 2017-07-02 02:46 | NUR ---
PRN ZOFRAN AND TORADOL Patient complains of nausea and increased back and muscle pain. PRN Zofran given SL, and Toradol given IM. Patient tolerated well. Will reassess in half an hour.
--- NOTE | 2017-07-02 02:49 | NUR ---
PRN VISTARIL AND SEROQUEL REASSESSMENT Patient reports that she still experiences anxiety and agitiation, she feels that medications are not effective. SN instructed patient to practice deep breathing and finding comfortable positions. Patient verbalized understanding to instructions. SN will continue to monitor.
--- NOTE | 2017-07-02 03:16 | NUR ---
PRN ZOFRAN AND TORADOL REASSESSMENT Patient reports decrease in nausea; PRN Zofran effective. Patient reports slight decrease in pain but still presenting with facial grimace and some moaning. SN encouraged patient to find comforable position in bed and offered heat packs for back. Patient accepted heat packs. Will continue to monitor.
[2017-07-02 04:00] VITALS: BP 116/76
--- NOTE | 2017-07-02 04:00 | NUR ---
0400 CIWA & COWS Patient's respirations are even and unlabored, no distress noted at this time. CIWA and COWS scores unable to be assessed while patient is asleep, to be scored while awake per protocol. Safety measures in place, will continue to monitor.
[2017-07-02] MEDS: MAG HYDROX/AL HYDROX/SIMETH 30 ML LIQUID UDC PO PRN ×3 (05:50→14:34)
--- NOTE | 2017-07-02 05:50 | NUR ---
PRN MAALOX Patient complains of heartburn, requesting relief medication. PRN Maalox was given. Will reassess in one hour.
--- NOTE | 2017-07-02 06:50 | NUR ---
PRN MAALOX REASSESSMENT Patient reports improvement in heartburn, Maalox effective. Will continue to monitor.
--- NOTE | 2017-07-02 07:50 | NUR ---
END OF SHIFT Patient is a 31-year-old female admitted on 06/21/17 for Xanax, Suboxone, and Klonopin substance abuse. 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 Patient is FULL code, regular diet, and allergic to Penicillin. Patient received the following PRNs: Dulcolax, Baclofen, Robaxin, Motrin, Catapres, Benadryl, Vistaril, Seroquel, Zofran, Toradol, and Maalox. Patient was offered heat packs throughout the shift for alternative pain measure. Patient slept for 3.5 hours, total intake 1500mL, void x4, no BM. Patients last COWS 7, CIWA 10. Patient is scheduled for discharge today. Patients bed is locked in low position, side rails up x2, call light within reach, safety measures in place. Will endorse to day shift.
--- NOTE | 2017-07-02 08:00 | NUR ---
START OF SHIFT NOTE 31 year old female admitted for benzo and suboxone detox. Allergy to PCN. Regular diet. Full code. History of anxiety, depression, panic disorder, anorexia, unspecified cyst on brain, history of alcohol abuse. On fall and seizure precaution. Received report from night RN. Pt last CIWA 10 and COW 8 at 1200am. Received the following PRN's": Clonidine, Vistaril and Serequel for anxiety, Toradol IM for generalized pain, as well as Motrin, Robaxin, and Baclofen, also Maalox for acid reflux, Dulcolax for constipation, Benadryl for sleep, Zofran SL for nausea. Slept 3 hours. 0800 pt came to nursing station requesting toradol injection for pain. Pt notified injection cannot be given until 0845, but other PRN medications can be offered at this time. RN will review EMAR. Pt alert and oriented but visibly anxious. Pt returned to room for medications and vital signs.
[2017-07-02] MEDS: SERTRALINE HCL 100 MG TABLET PO SCH (08:35)
[2017-07-02] MEDS: BACLOFEN 20 MG TABLET PO PRN (08:36)
[2017-07-02] MEDS: METHOCARBAMOL 750 MG TABLET PO PRN (08:36)
[2017-07-02] MEDS: IBUPROFEN 400 MG TABLET PO PRN (08:36)
--- NOTE | 2017-07-02 08:36 | NUR ---
PRN MEDICATION ADMINISTRATION Pt reports generalized, "nerve like pain" throughout body 10/10, severe acid reflux, anxiety 10/10. CIWA 16 and COWS 7 with scores elevated due to subjective inquiry elements. wire basket maker notified of scores. Pt also reporting muscle pain/spasm. Given Baclofen, Motrin, Robaxin, Seroquel, Vistaril. Will reassess.
[2017-07-02] MEDS: CARBAMAZEPINE 200 MG TABLET PO SCH (08:37)
--- NOTE | 2017-07-02 08:48 | NUR ---
PRN MEDICATION ADMINISTRATION Pt reporting acid reflux symptoms. Given Mylanta po. Will reassess.
--- NOTE | 2017-07-02 08:49 | NUR ---
PRN MEDICATION ADMINISTRATION Pt reporting generalized pain 10/10. Given Toradol injection. Will reassess.
[2017-07-02] MEDS: MULTIVITAMINS,THERAPEUTIC TABLET PO SCH (09:00)
[2017-07-02] MEDS: OMEGA PO SCH (09:00)
[2017-07-02] MEDS: VITAMIN E PO SCH (09:00)
[2017-07-02] MEDS: UBIQUINOL 100 MG PO SCH (09:00)
[2017-07-02] MEDS: VITAMIN D3 2000 UNITS PO SCH (09:00)
[2017-07-02 09:22] VITALS: BP 130/82
--- NOTE | 2017-07-02 09:27 | NUR ---
EPISODE OF ANXIETY, WEAKNESS Pt was in patio, using vape, was with Louise charge nurse. Charge nurse stated Pt felt weak, "she stated she couldn't walk anymore", sat down on the ground. Charge nurse called for a wheelchair and rupeshnet brought up to unit. Pt did not lose consciousness or fall. Vital signs when brought to her room at 0926 were BP 130/82, puls 64, oxygen saturation 100 percent. Pt states she has a severe headache, "like a vice around my head" and nauseous. No emesis. Pt lying comfortably in bed. Dr. Gonzales notified of episode by realty loan specialist Ellen and he is to see the patient soon. Pt reassured that MD will be coming to see her. Will continue to monitor. Addendum: 07/02/17 at 1100 by RONNY ESCALANTE RN Pt also reassessed related to symptoms of pain and anxiety. Pt states pain is generalized nerve like pain, "like fibromyalgia", states pain. Continues to report severe anxiety. States she is not ready for discharge and needs suboxone and is still withdrawing. Awaiting MD assessment. Pt reassured MD will be with her shortly.
--- NOTE | 2017-07-02 09:27 | NUR ---
PRN MEDICATION REASSESSMENT Reassessed for 0836 PRN medications of Baclofen, motrin, robaxin, seroquel, vistaril, and Toradol IM at 0849, please note pt was off unit with charge nurse in [facility] at 0919 and was brought up to unit by devulcanizer charger at 09. Pt also reassessed for effectiveness of Maalox given at 0848. Pt states pain is generalized nerve like pain, "like fibromyalgia". Continues to report severe anxiety. States she is not ready for discharge and needs suboxone and is still withdrawing. Dr. Gonzales notified. Awaiting MD assessment. Pt reassured MD will be with her shortly.
[2017-07-02] MEDS ORDERED: PREGABALIN 25 MG CAPSULE PO ONE (11:30)
[2017-07-02] MEDS ORDERED: LORAZEPAM 1 MG TABLET PO ONE (11:45)
[2017-07-02 12:00] VITALS: BP 136/89
[2017-07-02] MEDS ORDERED: IBUPROFEN 800 MG TABLET PO ONE (13:00)
[2017-07-02] MEDS ORDERED: ONDANSETRON ODT 4 MG TAB.RAPDIS SL ONE (13:00)
[2017-07-02 13:22] VITALS: BP 130/82
[2017-07-02] MEDS: CLONIDINE HCL 0.1 MG TABLET PO PRN (13:22)
--- NOTE | 2017-07-02 13:22 | NUR ---
PRN MEDICATION ADMINISTRATION Pt reporting anxiety. Given Clonidine prn. Will reassess.
--- NOTE | 2017-07-02 14:22 | NUR ---
PRN MEDICATION REASSESSMENT Pt with decreased observable anxiety, lying in bed, smiling.
--- NOTE | 2017-07-02 14:50 | NUR ---
DISCHARGE NOTE Pt in stable condition. Vitals WNL. Pt is alert and oriented x 4, skin intact, pt denies suicidal or homicidal ideations. All discharge paperwork completed, dated and signed. Pt was discharged from [facility] on 07/02/17 at 1450. Pt left building with all of her belongings, prescriptions, medications, nutritional supplements. notified of Pt's discharge.
[2017-07-02] MEDS ORDERED: PREG50CA PO (16:07)
== END 2017-07-02 15:50 | disposition other institution (70) | DRG 895 ==
LOC: SRC 20:18
PROVIDERS: ADMIT Internal Medicine; ATTEND Internal Medicine
PROC: HZ2ZZZZ Detoxification Services for Substance Abuse Treatment (ICD-10-PCS; principal; 2017-06-21)
PROC: HZ41ZZZ Group Counseling for Substance Abuse Treatment, Behavioral (ICD-10-PCS; 2017-06-27)
DX: F13.230 Sedative, hypnotic or anxiolytic dependence with withdrawal, uncomplicated (principal); F50.00 Anorexia nervosa, unspecified; F33.1 Major depressive disorder, recurrent, moderate; F10.21 Alcohol dependence, in remission; F17.290 Nicotine dependence, other tobacco product, uncomplicated; F41.0 Panic disorder [episodic paroxysmal anxiety]; F11.23 Opioid dependence with withdrawal; F43.10 Post-traumatic stress disorder, unspecified; Z86.59 Personal history of other mental and behavioral disorders; G93.0 Cerebral cysts; Z91.19 Patient's noncompliance with other medical treatment and regimen; E07.81 Sick-euthyroid syndrome; Z79.899 Other long term (current) drug therapy
CPT/HCPCS: 36415; 70030-TC; 80307; 80346; 83735; 84443; 84703; 85025; 86592; 86705; 86803; 87340; 87806; A4663; G0480; J1885; Q0162; Q0163